=== PATIENT | female | born 1940 | race Caucasian/White ===

== ENCOUNTER 2018-09-27 12:55 | Inpatient (IN) | payer MEDICARE, BC ==
[2018-09-21 16:16] VITALS: BMI 19.8
[~2018-09-27 12:55] MED LIST: DEXAMETHASONE SOD PHOSPHATE 10 MG/ML 1 ML VIAL IV ONE; LACTATED RINGERS 1,000 ML IV SCH; MORPHINE SULFATE 4 MG/ML SYRINGE IV PRN; ONDANSETRON 4 MG/2 ML VIAL IVP ONE; ONDANSETRON 4 MG/2 ML VIAL IVP PRN; ceFAZolin IN SWFI 2 GM/20 ML SYRINGE IVP ONE
[2018-09-27] MEDS ORDERED: HYDROcodone/APAP 5-325MG 1 EACH TAB PO PRN (13:41)
[2018-09-27] MEDS ORDERED: SENNOSIDES-DOCUSATE SODIUM 1 EACH TAB PO PRN (13:41)
[2018-09-27] MEDS ORDERED: HYDROmorphone 0.5 MG/0.5 ML SYRINGE IVP PRN ×3 (13:41)
[2018-09-27] MEDS ORDERED: LACTATED RINGERS 1,000 ML IV ONE (13:52)
[2018-09-27] MEDS ORDERED: LIDOCAINE 1% 20 ML VIAL (10MG/ML) FOR IV START INTRADERMA ONE (13:53)
[2018-09-27] MEDS ORDERED: ONDANSETRON 4 MG/2 ML VIAL IVP ONE (13:55)
[2018-09-27] MEDS ORDERED: LIDOCAINE 1% INJ 10MG/ML (20 ML MDV) ONE (14:11)
[2018-09-27] MEDS ORDERED: SUCCINYLCHOLINE CHLORIDE 100 MG/5 ML SYR IV ONE (14:11)
[2018-09-27] MEDS ORDERED: ePHEDrine SULFATE/0.9% NACL/PF 50 MG/5 ML SYRINGE IV ONE (14:11)
[2018-09-27] MEDS ORDERED: fentaNYL (PF) 50 MCG/ML 2 ML AMP ONE (14:11)
[2018-09-27] MEDS ORDERED: PROPOFOL 10 MG/ML 20 ML VIAL IV ONE (14:11)
[2018-09-27] MEDS ORDERED: MIDAZOLAM 2 MG/2 ML VIAL ONE (14:11)
[2018-09-27] MEDS ORDERED: ceFAZolin 1,000 MG in SODIUM CHLORIDE 0.9% 1,000 ML IRRIGATION ONE (14:57)
--- NOTE | 2018-09-27 15:55 | P.OP ---
Date of Procedure: 09/27/18 Preoperative Diagnosis: Displaced fracture midshaft left humerus fracture Postoperative Diagnosis: Displaced fracture midshaft left humerus Procedure(s) Performed: Closed intramedullary rodding left humerus Implants: García and Nephew Trigen Humeral Nail 8/7mm x 26 cm García and Nephew 5.0 mm x 30 mm cancellous screw García and Nephew 5.0 mm x 40 mm cancellous screw Anesthesia: GETA Surgeon: Lucas Linda Financial Reporting Advisor #1: Aruna Hamilton Estimated Blood Loss (ml): 50 Pathology: none sent Condition: stable Disposition: PACU Indications for Procedure: This is a 77-year-old female that presented to my office after sustaining a fall onto her left side. X-rays demonstrated displaced fracture of her left midshaft humerus, after discussing the surgical and nonsurgical treatment options with her and her family at length, they wished to proceed with a closed intramedullary rodding of her left humerus. Informed consent was obtained Operative Findings: The operative findings are consistent with a displaced midshaft fracture of the left humerus Description of Procedure: The patient was seen in the preoperative area, consent was reviewed, and operative site was marked with a skin marker. Patient was then brought to the operating room and given preoperative antibiotics intravenously. A general anesthetic was administered by the anesthesia department. The patient was then placed in a beachchair position with the bony prominences well-padded and the head secured. The shoulder was then prepped and draped in the usual sterile fashion. A universal timeout was then performed, which confirmed the patient's name, surgical site, ALLERGIES, and consent. The procedure began by making a small incision on the superior aspect of the shoulder. Incision was then carried down to the insertion point of the machelle which is located just 1 cm distal and lateral to the greater tuberosity. An awl was then used to open up the humeral canal, and a guidewire was then passed proximally to distally across the fracture site while the fracture was held reduced. Fluoroscopic x-rays confirmed placement of the guidewire. The humeral canal was then reamed and opened proximally to the appropriate size. Also, the length of the humeral nail was then measured. Then, the appropriate size and length humeral machelle was opened and inserted into the humerus over the guidewire. The placement and length was checked fluoroscopically. The guidewire was then removed. Screws were then placed proximally to lock the machelle. No distal screws were necessary for stability. Final fluoroscopic x-rays were taken which confirmed placement of the machelle concentric reduction of the fracture. The incision was then irrigated, closed with 2-0 Vicryl and jessie for the skin. A sterile dressing was then applied, the patient was transported to the recovery room in an arm sling in stable condition. The machine operator assistant MEGGAN Quintana was required due the complexity of surgery and the need for a skilled entry level administrative assistant.
[2018-09-27] MEDS: HYDROmorphone 0.5 MG/0.5 ML SYRINGE IVP PRN ×4 (16:17→16:43)
[2018-09-27] MEDS ORDERED: diphenhydrAMINE 50 MG/ML 1 ML VIAL IVP ONE (16:48)
[2018-09-27] MEDS: HYDROcodone/APAP 5-325MG 1 EACH TAB PO PRN (19:14)
[2018-09-27] MEDS ORDERED: ALBUTEROL NEBULIZED 2.5 MG/3 ML INHALATION PRN (20:22)
[2018-09-27] MEDS ORDERED: LORATADINE 10 MG TAB PO PRN (20:22)
[2018-09-27] MEDS ORDERED: ALPRAZolam 0.25 MG TAB PO PRN (20:22)
[2018-09-27] MEDS: PRIMIDONE 50 MG TAB PO SCH (20:45)
[2018-09-27] MEDS ORDERED: ASPIRIN 325 MG TAB PO SCH (21:00)
[2018-09-27] MEDS: ceFAZolin IN SWFI 2 GM/20 ML SYRINGE IVP SCH (22:37)
[2018-09-28] MEDS ORDERED: HYDROcodone/APAP 5-325MG 1 EACH TAB ONE (01:00)
[2018-09-28] MEDS: ceFAZolin IN SWFI 2 GM/20 ML SYRINGE IVP SCH (06:18)
--- NOTE | 2018-09-28 07:15 | XR ---
EXAMINATION TYPE: XR humerus LT, FL guidance operating room DATE OF EXAM: 09/27/2018 CLINICAL HISTORY: Left humeral open reduction internal fixation TECHNIQUE: Fluoroscopy. COMPARISON: None. FINDINGS: Fluoroscopic guidance was provided during procedure performed by Dr. Linda. A total of 2 minutes and 22 seconds of fluoroscopic time was utilized during the procedure and 2 spot images wa s acquired demonstrating open reduction and internal fixation of the left humerus. IMPRESSION: As Above.
[2018-09-28 08:31] LABS: Basophils % (A) 0 %; Eosinophils # (A) 0.1 k/uL (0-0.7); Eosinophils % (A) 1 %; HCT 31.2 % (34.0-46.0); HGB 10.2 gm/dL (11.4-16.0); Lymphocytes # (A) 0.9 k/uL (1.0-4.8); Lymphocytes % (A) 11 %; MCH 29.8 pg (25.0-35.0); MCHC 32.6 g/dL (31.0-37.0); MCV 91.2 fL (80.0-100.0); Mean Platelet Volume 7.4; Monocytes # (A) 0.7 k/uL (0-1.0); Monocytes % (A) 9 %; Neutrophils # (A) 6.7 k/uL (1.3-7.7); Neutrophils % (A) 78 %; Platelet Count 215 k/uL (150-450); RBC 3.42 m/uL (3.80-5.40); RDW 14.6 % (11.5-15.5); WBC 8.6 k/uL (3.8-10.6)
--- NOTE | 2018-09-28 08:49 | P.PN ---
Subjective Progress Note Date: 09/28/18 This is a 77-year-old female who is status post closed intramedullary rodding of the left midshaft humerus. This is postoperative day #1 and the patient is seen and evaluated at bedside with Dr. Lucas Linda. Patient does report pain to the left upper extremity today. Patient denies any fever/chills, numbness, weakness, tingling, abdominal pain, shortness of breath or chest pain. Objective - Vital Signs Vital signs: Vital Signs Temp 98.1 F 09/28/18 08:11 Pulse 88 09/28/18 08:11 Resp 16 09/28/18 08:11 BP 150/76 09/28/18 08:11 Pulse Ox 97 09/28/18 08:11 Intake & Output 09/27/18 09/28/18 09/28/18 18:59 06:59 18:59 Intake Total 1151 1420 Output Total 50 Balance 1101 1420 Weight 50.802 kg Intake: IV 1151 Intake, IV Titration 840 Amount Lactated Ringers 1,000 ml 840 @ 0 mls/hr IV .[facility] Rx#:[id number] Oral 580 Output: Estimated Blood Loss 50 Other: # Voids 1 - Exam Vital signs are stable. Patient is in no acute distress and is alert and oriented 3. Dressing is clean, dry, and intact. Patient has full range of motion of the left hand and wrist without pain or difficulty. Sensation is intact. Neurovascular status and circulatory status are intact to the left upper extremity. - Labs CBC & Chem 7: 09/28/18 07:15 Labs: Abnormal Lab Results - Last 24 Hours (Table) 09/28/18 Range/Units 07:15 RBC 3.42 L (3.80-5.40) m/uL Hgb 10.2 L (11.4-16.0) gm/dL Hct 31.2 L (34.0-46.0) % Lymphocytes # 0.9 L (1.0-4.8) k/uL Assessment and Plan Assessment: Hypertension Asthma COPD Renal disease Hyperlipidemia Anxiety Thoracic aortic aneurysm Plan: 1. Daily dressing changes. Maintain sling for comfort. 2. Continue routine postoperative care and pain control. 3. Nonweightbearing to the left upper extremity. 4. Physical therapy for gentle range of motion to the left upper extremity. 5. Appreciate input from medicine. 6. Awaiting ECF placement.
[2018-09-28] MEDS: ALBUTEROL NEBULIZED 2.5 MG/3 ML INHALATION PRN (09:01)
[2018-09-28] MEDS: SYMBICORT 160-4.5 MCG INHALER INHALATION SCH ×2 (09:02→21:31)
[2018-09-28] MEDS: amLODIPine 5 MG TAB PO SCH (09:14)
[2018-09-28] MEDS: PANTOPRAZOLE 40 MG TABLET PO SCH (09:14)
[2018-09-28] MEDS: SERTRALINE 25 MG TAB PO SCH (09:14)
[2018-09-28] MEDS: DICYCLOMINE 10 MG CAP PO SCH ×2 (09:14→12:45)
[2018-09-28] MEDS: MULTIVITAMINS, THERA 1 EACH TAB PO SCH (09:14)
[2018-09-28] MEDS: HYDROcodone/APAP 5-325MG 1 EACH TAB PO PRN ×2 (09:14→18:27)
[2018-09-28] MEDS: LISINOPRIL 20 MG TAB PO SCH (09:14)
[2018-09-28] MEDS: CALCIUM CARB-VIT D 500MG-200UN 1 EACH TAB PO SCH (09:14)
[2018-09-28] MEDS ORDERED: POLYETHYLENE GLYCOL 3350 17 GM POWD.PACK PO PRN (12:12)
[2018-09-28] MEDS ORDERED: KETOROLAC 30 MG/ML 1 ML VIAL IVP PRN (12:13)
[2018-09-28 12:52] LABS: Calcium 9.1 mg/dL (8.4-10.2); Potassium 4.5 mmol/L (3.5-5.1)
[2018-09-28] MEDS ORDERED: traMADol 50 MG TAB PO PRN (13:10)
--- NOTE | 2018-09-28 13:11 | P.CONS ---
History of Present Illness - Reason for Consult recommendations regarding antihypertensive medications - History of Present Illness 77-year-old female admitted the for displaced fracture of the mid shaft left humerus for which she underwent intramedullary rodding of the left humerus. Patient is otherwise clinically doing well did not pass gas and did not move her bowel yet patient is on opiates. I'll start her on Toradol to avoid opiate and ALLERGIES see a loss obtain a basic metabolic profile as I'm starting her on nonsteroidal anti-inflammatory is patient will need GI prophylaxis. Patient is bit constipated because of the opiates patient is already on senna and docusate I'll add MiraLAX on as-needed basis. Patient denied any fever chills dysuria cough. Recommend to avoid opiates if possible along with avoiding anticholinergics, benzodiazepines and barbiturates Review of Systems REVIEW OF SYSTEMS: CONSTITUTIONAL: No fever, no malaise, no fatigue. HEENT: No recent visual problems or hearing problems. Denied any sore throat. CARDIOVASCULAR: No chest pain, orthopnea, PND, no palpitations, no syncope. PULMONARY: No shortness of breath, no cough, no hemoptysis. GASTROINTESTINAL: No diarrhea, no nausea, no vomiting, no abdominal pain. NEUROLOGICAL: No headaches, no weakness, no numbness. HEMATOLOGICAL: Denies any bleeding or petechiae. GENITOURINARY: Denies any burning micturition, frequency, or urgency. pain in the left arm MUSCULOSKELETAL/RHEUMATOLOGICAL: Denies any joint pain, swelling, or any muscle pain. ENDOCRINE: Denies any polyuria or polydipsia. The rest of the 14-point review of systems is negative. Past Medical History Past Medical History: Asthma, COPD, GERD/Reflux, Hearing Disorder / Deafness, Hypertension, Musculoskeletal Disorder, Neurologic Disorder, Osteoarthritis (OA) , Skin Disorder Additional Past Medical History / Comment(s): HIATAL HERNIA. IBS. "KIDNEY TURNED WRONG WAY," HX SL ABN RFP. LT HUMERUS FX, IN SPLINT/SLING; ? SYNCOPAL EPISODE W/ HX FALL 6 WKS AGO; FELT A SNAP IN ARM 09/16/18. SCOLIOSIS, OSTEOPOROSIS. PSORIASIS-LIKE COND, PATCHES ON ARMS. TREMORS LT HAND. VARICOSE VEINS. POS EDEMA ANKLES. HAD STEROID RX IN PAST MONTH FOR COUGH. History of Any Multi-Drug Resistant Organisms: None Reported Past Surgical History: Cholecystectomy, Heart Catheterization Past Anesthesia/Blood Transfusion Reactions: Postoperative Nausea & Vomiting ( PONV) Smoking Status: Never smoker - Past Family History Mother Family Medical History: Cancer Additional Family Medical History / Comment(s): THYROID CA Medications and Allergies Home Medications Medication Instructions Recorded Confirmed Type ALPRAZolam [Xanax] 0.25 mg PO BID PRN 09/21/18 09/27/18 History Acetaminophen [Tylenol Extra 500 - 1,000 mg PO Q4-6H PRN 09/21/18 09/27/18 History Strength] Albuterol Inhaler [Ventolin Hfa 2 puff INHALATION RT-Q6H PRN 09/21/18 09/27/18 History Inhaler] Albuterol Nebulized [Ventolin 2.5 mg INHALATION RT-BID PRN 09/21/18 09/27/18 History Nebulized] Calcium Carbonate/Vitamin D3 1 each PO DAILY 09/21/18 09/27/18 History [Calcium 600-Vit D3 400 Tablet] Dicyclomine HCl 10 mg PO AC-TID 09/21/18 09/27/18 History Fluocinonide [Lidex .05%] 1 applic TOPICAL BID PRN 09/21/18 09/27/18 History Fluocinonide [Lidex .05%] 1 applic TOPICAL Q48H PRN 09/21/18 09/27/18 History Fluticasone/Vilanterol [Breo 1 inhalation INHALATION RT-DAILY 09/21/18 09/27/18 History Ellipta 200-25 Mcg INH] HYDROcodone/APAP 5-325MG [[place] 1 tab PO BID 09/21/18 09/27/18 History 5-325] Lisinopril [Zestril] 20 mg PO DAILY 09/21/18 09/27/18 History Loratadine [Claritin] 10 mg PO DAILY PRN 09/21/18 09/27/18 History Multivitamins, Thera [Multivitamin 1 tab PO DAILY 09/21/18 09/27/18 History (formulary)] Naproxen Sodium [Aleve] 220 mg PO BID PRN 09/21/18 09/27/18 History Omeprazole [PriLOSEC] 20 mg PO AC-BRKFST 09/21/18 09/27/18 History Primidone [Mysoline] 50 mg PO HS 09/21/18 09/27/18 History Sertraline [Zoloft] 25 mg PO DAILY 09/21/18 09/27/18 History Simethicone [Gas-X] 125 mg PO DAILY PRN 09/21/18 09/27/18 History amLODIPine [Norvasc] 5 mg PO DAILY 09/21/18 09/27/18 History Allergies Allergy/AdvReac Type Severity Reaction Status Date / Time ciprofloxacin [From Cipro] Allergy Unknown Verified 09/27/18 19:05 morphine Allergy Unknown Verified 09/27/18 19:05 nabumetone Allergy Unknown Verified 09/27/18 19:05 sulfadiazine Allergy Unknown Verified 09/27/18 19:05 sulfamethizole Allergy Unknown Verified 09/27/18 19:05 adhesive tape AdvReac TEARS Verified 09/27/18 19:05 SKIN, VERY THIN SKIN Physical Exam Vitals: Vital Signs Temp Pulse Pulse Resp BP Pulse Ox 09/28/18 09:18 74 09/28/18 09:03 76 09/28/18 08:11 98.1 F 88 16 150/76 97 09/27/18 19:25 97.3 F L 74 16 156/71 91 L 09/27/18 19:15 78 154/73 95 09/27/18 19:00 72 156/71 92 L 09/27/18 18:50 98.4 F 74 14 154/76 95 09/27/18 18:45 70 162/70 94 L 09/27/18 18:30 73 154/72 89 L 09/27/18 18:15 77 153/73 92 L 09/27/18 18:00 74 156/68 94 L 09/27/18 17:45 78 161/82 94 L 09/27/18 17:30 82 149/120 92 L 09/27/18 17:15 74 140/65 93 L 09/27/18 17:02 80 14 134/69 95 09/27/18 17:00 72 143/65 91 L 09/27/18 16:48 83 16 169/79 100 09/27/18 16:45 84 152/76 97 09/27/18 16:33 72 16 158/73 100 09/27/18 16:17 77 16 166/79 99 09/27/18 16:05 97.0 F L 77 18 132/74 99 09/27/18 13:51 98.0 F 80 18 157/72 97 Intake and Output 09/27/18 09/28/18 09/28/18 22:59 06:59 14:59 Intake Total 590 1180 Balance 590 1180 Intake: IV 350 Intake, IV Titration 140 700 Amount Lactated Ringers 1,000 ml 140 700 @ 0 mls/hr IV .[facility] Rx#:[id number] Oral 100 480 Other: Voiding Method Toilet # Voids 1 1 Weight 50.802 kg PHYSICAL EXAMINATION: GENERAL: The patient is alert and oriented x3, not in any acute distress. thin built HEENT: Pupils are round and equally reacting to light. EOMI. No scleral icterus. No conjunctival pallor. Normocephalic, atraumatic. No pharyngeal erythema. No thyromegaly. CARDIOVASCULAR: S1 and S2 present. No murmurs, rubs, or gallops. PULMONARY: Chest is clear to auscultation, no wheezing or crackles. ABDOMEN: Soft, nontender, nondistended, normoactive bowel sounds. No palpable organomegaly. left arm sling in place MUSCULOSKELETAL: No joint swelling or deformity. EXTREMITIES: No cyanosis, clubbing, or pedal edema. NEUROLOGICAL: Gross neurological examination did not reveal any focal deficits. SKIN: No rashes. Results CBC & Chem 7: 09/28/18 07:15 09/28/18 07:15 Labs: Abnormal Lab Results - Last 24 Hours (Table) 09/28/18 09/28/18 Range/Units 07:15 07:15 RBC 3.42 L (3.80-5.40) m/uL Hgb 10.2 L (11.4-16.0) gm/dL Hct 31.2 L (34.0-46.0) % Lymphocytes # 0.9 L (1.0-4.8) k/uL Sodium 134 L (137-145) mmol/L BUN 18 H (7-17) mg/dL Creatinine 1.14 H (0.52-1.04) mg/dL Assessment and Plan Plan: hyponatremia: Hypervolemic hyponatremia patient is on IV fluids which can be continued repeat basic metabolic profile tomorrow patient only has mild hyponatremia -Mild acute renal failure because of intravascular depletion initially started her on Toradol which I'll discontinue all started on tramadol to avoid opiate and ALLERGIES see which is making her conservator -Constipation secondary to opiates: Management with MiraLAX as needed and senna as mentioned above. Bentyl will be discontinued -Left humerus fracture post-intramedullary rodding -depression continue with sertraline -Hypertension patient is not hypotensive patient was resumed on her home regimen which can be continued. FN DVT prophylaxis as per primary service
[2018-09-28] MEDS: HEPARIN SODIUM,PORCINE 5,000 UNIT/ML 1 ML VIAL SQ SCH (22:20)
[2018-09-28] MEDS: PRIMIDONE 50 MG TAB PO SCH (22:20)
[2018-09-29] MEDS: HYDROcodone/APAP 5-325MG 1 EACH TAB PO PRN (02:33)
[2018-09-29] MEDS: CALCIUM CARB-VIT D 500MG-200UN 1 EACH TAB PO SCH (08:17)
[2018-09-29] MEDS: MULTIVITAMINS, THERA 1 EACH TAB PO SCH (08:17)
[2018-09-29] MEDS: HEPARIN SODIUM,PORCINE 5,000 UNIT/ML 1 ML VIAL SQ SCH ×2 (08:17→21:09)
[2018-09-29] MEDS: SERTRALINE 25 MG TAB PO SCH (08:17)
[2018-09-29] MEDS: PANTOPRAZOLE 40 MG TABLET PO SCH (08:17)
[2018-09-29] MEDS: amLODIPine 5 MG TAB PO SCH (08:17)
[2018-09-29] MEDS: LISINOPRIL 20 MG TAB PO SCH (08:17)
--- NOTE | 2018-09-29 08:41 | P.PN ---
Subjective Progress Note Date: 09/29/18 This is a 77-year-old female who is status post closed intramedullary rodding of the left midshaft humerus. This is postoperative day #2 and the patient is seen and evaluated at bedside. Patient does report pain to the left upper extremity today. Patient has not had a bowel movement yet, per nursing staff. Patient denies any fever/chills, numbness, weakness, tingling, abdominal pain, shortness of breath or chest pain. Objective - Vital Signs Vital signs: Vital Signs Temp 98.2 F 09/29/18 00:08 Pulse 74 09/29/18 00:08 Resp 16 09/29/18 00:57 BP 144/67 09/29/18 00:08 Pulse Ox 96 09/29/18 00:08 Intake & Output 09/28/18 09/29/18 09/29/18 18:59 06:59 18:59 Intake Total 500 540 Balance 500 540 Intake: Oral 500 540 Other: Voiding Method Toilet # Voids 2 1 - Exam Vital signs are stable. Patient is in no acute distress and is alert and oriented 3. Surgical clips are intact. Incision is clean, dry, and intact. Patient has full range of motion of the left hand and wrist without pain or difficulty. There is moderate swelling of the left upper arm. Sensation is intact. Neurovascular status and circulatory status are intact to the left upper extremity. - Labs CBC & Chem 7: 09/28/18 07:15 09/28/18 07:15 Labs: Abnormal Lab Results - Last 24 Hours (Table) 09/28/18 09/28/18 Range/Units 07:15 07:15 RBC 3.42 L (3.80-5.40) m/uL Hgb 10.2 L (11.4-16.0) gm/dL Hct 31.2 L (34.0-46.0) % Lymphocytes # 0.9 L (1.0-4.8) k/uL Sodium 134 L (137-145) mmol/L BUN 18 H (7-17) mg/dL Creatinine 1.14 H (0.52-1.04) mg/dL Assessment and Plan Assessment: Hypertension Asthma COPD Renal disease Hyperlipidemia Anxiety Thoracic aortic aneurysm Plan: 1. Daily dressing changes. Maintain sling for comfort. 2. Continue routine postoperative care and pain control. 3. Nonweightbearing to the left upper extremity. 4. Physical therapy for gentle range of motion to the left upper extremity. 5. Appreciate input from medicine. 6. Awaiting ECF placement.
[2018-09-29] MEDS: SYMBICORT 160-4.5 MCG INHALER INHALATION SCH ×2 (09:13→21:36)
[2018-09-29] MEDS: ALBUTEROL NEBULIZED 2.5 MG/3 ML INHALATION PRN (09:13)
--- NOTE | 2018-09-29 13:25 | P.PN ---
Subjective No overnight events Constitutional: Denied any fatigue denied any fever. Cardio vascular: denied any chest pain, palpitations Gastrointestinal denied any nausea vomiting Pulmonary: Denied any shortness of breath cough Neurologic denied any new focal deficits All inpatient medications were reviewed and appropriate changes in these medications as dictated in the interval history and assessment and plan. Discontinuing amlodipine, from her serial blood pressure measurement and do not believe she'll require this. Objective - Vital Signs Vital signs: Vital Signs Temp 98.6 F 09/29/18 08:11 Pulse 84 09/29/18 09:15 Resp 18 09/29/18 08:11 BP 153/80 09/29/18 08:11 Pulse Ox 98 09/29/18 08:11 Intake & Output 09/28/18 09/29/18 09/29/18 18:59 06:59 18:59 Intake Total 500 540 Balance 500 540 Intake: Oral 500 540 Other: Voiding Method Toilet # Voids 2 1 - Exam PHYSICAL EXAMINATION: GENERAL: The patient is alert and oriented x3, not in any acute distress. thin built HEENT: Pupils are round and equally reacting to light. EOMI. No scleral icterus. No conjunctival pallor. Normocephalic, atraumatic. No pharyngeal erythema. No thyromegaly. CARDIOVASCULAR: S1 and S2 present. No murmurs, rubs, or gallops. PULMONARY: Chest is clear to auscultation, no wheezing or crackles. ABDOMEN: Soft, nontender, nondistended, normoactive bowel sounds. No palpable organomegaly. left arm sling in place MUSCULOSKELETAL: No joint swelling or deformity. EXTREMITIES: No cyanosis, clubbing, or pedal edema. NEUROLOGICAL: Gross neurological examination did not reveal any focal deficits. SKIN: No rashes. - Labs CBC & Chem 7: 09/28/18 07:15 09/28/18 07:15 Assessment and Plan Plan: hyponatremia: Hypervolemic hyponatremia patient is on IV fluids which can be continued repeat basic metabolic profile tomorrow patient only has mild hyponatremia -Mild acute renal failure because of intravascular depletion initially started her on Toradol which I'll discontinue all started on tramadol to avoid opiate Meme anticholinergic medications, benzodiazepines and barbiturates patient is still bit constipated -Constipation secondary to opiates: Management with MiraLAX as needed and senna as mentioned above. Bentyl was discontinued -Left humerus fracture post-intramedullary rodding -depression continue with sertraline -Hypertension patient is not hypotensive patient was resumed on her home regimen which can be continued. FN DVT prophylaxis as per primary service
[2018-09-29] MEDS: LACTULOSE 20 GM/30 ML CUP PO SCH ×2 (15:16→21:06)
[2018-09-29] MEDS ORDERED: SENNOSIDES-DOCUSATE SODIUM 1 EACH TAB PO SCH (21:00)
[2018-09-29] MEDS: DOCUSATE 100 MG CAP PO SCH (21:06)
[2018-09-29] MEDS: PRIMIDONE 50 MG TAB PO SCH (21:09)
--- NOTE | 2018-09-30 08:39 | P.DS ---
Providers Date of admission: 09/27/18 12:55 Expected date of discharge: 09/30/18 Attending physician: Lucas Linda Consults: 09/28/18 08:18 Consult Physician Routine Consulting Provider: Dany Modi Consult Reason/Comments: medical management Do you want consulting provider notified?: Yes Primary care physician: Vic García MD Hospital Course: This is a 77-year-old female who sustained a fracture of the left midshaft humerus after a fall. The patient presented for initial evaluation as an outpatient. After discussion and consideration patient elects to proceed with closed intramedullary rodding of the left humerus. The patient is seen preoperatively by Dr. Linda and medically cleared for surgery by their primary care physician. Patient is admitted to [facility] on 09/27/2018 for closed intramedullary rodding of the left humerus. The procedures performed without complication or sequelae. The patient is doing well postoperatively. Labs and vital signs are stable on day of discharge. On day of discharge patient's shoulder incision is healing well. There is minimal erythema. There is no drainage noted at this time. There is minimal soft tissue swelling to the shoulder. Patient has full range of motion of the left wrist and hand without difficulty or pain. Sensation is intact. Neurovascular status to the left upper extremity is intact. Patient is discharged to rehab in good condition. Please see med rec for accurate list of home medications. Plan - Discharge Summary Discharge Rx Participant: Yes New Discharge Prescriptions: No Action HYDROcodone/APAP 5-325MG [[place] 5-325] 1 tab PO BID Naproxen Sodium [Aleve] 220 mg PO BID PRN PRN Reason: Pain Acetaminophen [Tylenol Extra Strength] 500 - 1,000 mg PO Q4-6H PRN PRN Reason: Pain Simethicone [Gas-X] 125 mg PO DAILY PRN PRN Reason: IBS SX Loratadine [Claritin] 10 mg PO DAILY PRN PRN Reason: ALLERGY SX Dicyclomine HCl 10 mg PO AC-TID Omeprazole [PriLOSEC] 20 mg PO AC-BRKFST Multivitamins, Thera [Multivitamin (formulary)] 1 tab PO DAILY Fluocinonide [Lidex .05%] 1 applic TOPICAL Q48H PRN PRN Reason: SCALP FOR PSORIASIS Calcium Carbonate/Vitamin D3 [Calcium 600-Vit D3 400 Tablet] 1 each PO DAILY Fluocinonide [Lidex .05%] 1 applic TOPICAL BID PRN PRN Reason: "PSORIASIS LIKE CONDITION" Fluticasone/Vilanterol [Breo Ellipta 200-25 Mcg INH] 1 inhalation INHALATION RT-DAILY Albuterol Nebulized [Ventolin Nebulized] 2.5 mg INHALATION RT-BID PRN PRN Reason: COPD SX Albuterol Inhaler [Ventolin Hfa Inhaler] 2 puff INHALATION RT-Q6H PRN PRN Reason: COPD SX ALPRAZolam [Xanax] 0.25 mg PO BID PRN PRN Reason: Anxiety amLODIPine [Norvasc] 5 mg PO DAILY Primidone [Mysoline] 50 mg PO HS Sertraline [Zoloft] 25 mg PO DAILY Lisinopril [Zestril] 20 mg PO DAILY Discharge Medication List ALPRAZolam [Xanax] 0.25 mg PO BID PRN 09/21/18 [History] Acetaminophen [Tylenol Extra Strength] 500 - 1,000 mg PO Q4-6H PRN 09/21/18 [ History] Albuterol Inhaler [Ventolin Hfa Inhaler] 2 puff INHALATION RT-Q6H PRN 09/21/18 [ History] Albuterol Nebulized [Ventolin Nebulized] 2.5 mg INHALATION RT-BID PRN 09/21/18 [ History] Calcium Carbonate/Vitamin D3 [Calcium 600-Vit D3 400 Tablet] 1 each PO DAILY 11/08 [History] Dicyclomine HCl 10 mg PO AC-TID 09/21/18 [History] Fluocinonide [Lidex .05%] 1 applic TOPICAL BID PRN 09/21/18 [History] Fluocinonide [Lidex .05%] 1 applic TOPICAL Q48H PRN 09/21/18 [History] Fluticasone/Vilanterol [Breo Ellipta 200-25 Mcg INH] 1 inhalation INHALATION RT- DAILY 09/21/18 [History] HYDROcodone/APAP 5-325MG [[place] 5-325] 1 tab PO BID 09/21/18 [History] Lisinopril [Zestril] 20 mg PO DAILY 09/21/18 [History] Loratadine [Claritin] 10 mg PO DAILY PRN 09/21/18 [History] Multivitamins, Thera [Multivitamin (formulary)] 1 tab PO DAILY 09/21/18 [History ] Naproxen Sodium [Aleve] 220 mg PO BID PRN 09/21/18 [History] Omeprazole [PriLOSEC] 20 mg PO AC-BRKFST 09/21/18 [History] Primidone [Mysoline] 50 mg PO HS 09/21/18 [History] Sertraline [Zoloft] 25 mg PO DAILY 09/21/18 [History] Simethicone [Gas-X] 125 mg PO DAILY PRN 09/21/18 [History] amLODIPine [Norvasc] 5 mg PO DAILY 09/21/18 [History] Follow up Appointment(s)/Referral(s): Nasra Rausch, [NON-STAFF] - As Needed
[2018-09-30 08:49] LABS: Calcium 9.3 mg/dL (8.4-10.2); Potassium 4.5 mmol/L (3.5-5.1)
[2018-09-30] MEDS: SYMBICORT 160-4.5 MCG INHALER INHALATION SCH (09:11)
[2018-09-30] MEDS: HEPARIN SODIUM,PORCINE 5,000 UNIT/ML 1 ML VIAL SQ SCH (09:51)
[2018-09-30] MEDS: DOCUSATE 100 MG CAP PO SCH (09:51)
[2018-09-30] MEDS: PANTOPRAZOLE 40 MG TABLET PO SCH (09:53)
[2018-09-30] MEDS: CALCIUM CARB-VIT D 500MG-200UN 1 EACH TAB PO SCH (09:53)
[2018-09-30] MEDS: LISINOPRIL 20 MG TAB PO SCH (09:53)
[2018-09-30] MEDS: SERTRALINE 25 MG TAB PO SCH (09:53)
[2018-09-30] MEDS: MULTIVITAMINS, THERA 1 EACH TAB PO SCH (09:53)
[2018-09-30] MEDS: LACTULOSE 20 GM/30 ML CUP PO SCH (09:53)
[2018-09-30 09:55] VITALS: BP 112/69; PULSE 86; RESP 16; TEMP 97.8
--- NOTE | 2018-09-30 12:11 | P.PN ---
Subjective Patient is clinically doing well amlodipine will be discussed uterine patient blood pressure is within normal limits. Patient is being discharged to subacute rehabilitation medication reconciliation is taken care of. Constitutional: Denied any fatigue denied any fever. Cardio vascular: denied any chest pain, palpitations Gastrointestinal denied any nausea vomiting Pulmonary: Denied any shortness of breath cough Neurologic denied any new focal deficits All inpatient medications were reviewed and appropriate changes in these medications as dictated in the interval history and assessment and plan. Discontinuing amlodipine, from her serial blood pressure measurement and do not believe she'll require this. Objective - Vital Signs Vital signs: Vital Signs Temp 97.8 F 09/30/18 09:55 Pulse 86 09/30/18 09:55 Resp 16 09/30/18 09:55 BP 112/69 09/30/18 09:55 Pulse Ox 98 09/30/18 09:55 Intake & Output 09/29/18 09/30/18 09/30/18 18:59 06:59 18:59 Intake Total 1620 Balance 1620 Intake: Oral 1620 Other: Voiding Method Toilet # Voids 2 2 # Bowel Movements 3 - Exam PHYSICAL EXAMINATION: GENERAL: The patient is alert and oriented x3, not in any acute distress. thin built HEENT: Pupils are round and equally reacting to light. EOMI. No scleral icterus. No conjunctival pallor. Normocephalic, atraumatic. No pharyngeal erythema. No thyromegaly. CARDIOVASCULAR: S1 and S2 present. No murmurs, rubs, or gallops. PULMONARY: Chest is clear to auscultation, no wheezing or crackles. ABDOMEN: Soft, nontender, nondistended, normoactive bowel sounds. No palpable organomegaly. left arm sling in place MUSCULOSKELETAL: No joint swelling or deformity. EXTREMITIES: No cyanosis, clubbing, or pedal edema. NEUROLOGICAL: Gross neurological examination did not reveal any focal deficits. SKIN: No rashes. - Labs CBC & Chem 7: 09/28/18 07:15 09/30/18 07:38 Labs: Abnormal Lab Results - Last 24 Hours (Table) 09/30/18 Range/Units 07:38 Sodium 135 L (137-145) mmol/L Creatinine 1.07 H (0.52-1.04) mg/dL Assessment and Plan Plan: hyponatremia: Hypervolemic hyponatremia improved with IV fluids patient can be discharged from medical perspective I did review medication reconciliation and appropriate changes were made to her discharge medications -Mild acute renal failure because of intravascular depletion improved with IV fluids -Constipation secondary to opiates: Symptomatic management and secondary to opiates which are probably need to be avoided as much as we can -Left humerus fracture post-intramedullary rodding -depression continue with sertraline -Hypertension
[2018-09-30] MEDS: HYDROcodone/APAP 5-325MG 1 EACH TAB PO PRN (14:43)
== END 2018-09-30 14:59 | DRG 493 ==
LOC: 2ORMAIN 12:55 → 4SSUR 16:15
PROVIDERS: ADMIT Orthopaedic Surgery; ATTEND Orthopaedic Surgery
PROC: 0PSG06Z Reposition Left Humeral Shaft with Intramedullary Internal Fixation Device, Open Approach (ICD-10-PCS; principal; 2018-09-27 15:05)
DX: S42.322A Displaced transverse fracture of shaft of humerus, left arm, initial encounter for closed fracture (principal); E87.1 Hypo-osmolality and hyponatremia; N17.9 Acute kidney failure, unspecified; W19.XXXA Unspecified fall, initial encounter; I10 Essential (primary) hypertension; M81.0 Age-related osteoporosis without current pathological fracture; I71.2 Thoracic aortic aneurysm, without rupture; F41.9 Anxiety disorder, unspecified; F32.9 Major depressive disorder, single episode, unspecified; J44.9 Chronic obstructive pulmonary disease, unspecified; K59.00 Constipation, unspecified; T40.605A Adverse effect of unspecified narcotics, initial encounter; E78.5 Hyperlipidemia, unspecified; H91.90 Unspecified hearing loss, unspecified ear; R25.1 Tremor, unspecified; I83.90 Asymptomatic varicose veins of unspecified lower extremity; K21.9 Gastro-esophageal reflux disease without esophagitis; K44.9 Diaphragmatic hernia without obstruction or gangrene; K58.9 Irritable bowel syndrome, unspecified; M41.9 Scoliosis, unspecified; N28.9 Disorder of kidney and ureter, unspecified; Z79.899 Other long term (current) drug therapy; Z79.51 Long term (current) use of inhaled steroids; Z80.8 Family history of malignant neoplasm of other organs or systems; Z90.49 Acquired absence of other specified parts of digestive tract; Z88.1 Allergy status to other antibiotic agents; Z88.2 Allergy status to sulfonamides; Z88.8 Allergy status to other drugs, medicaments and biological substances; Z87.891 Personal history of nicotine dependence
CPT/HCPCS: 80048; 85025; 94640

== ENCOUNTER → 2021-09-30 | Outpatient (CLI) | payer MEDICARE, BC ==
[2021-09-30 14:56] LABS: HCT 39.5 % (34.0-46.0); HGB 12.7 gm/dL (11.4-16.0); MCH 31.3 pg (25.0-35.0); MCHC 32.2 g/dL (31.0-37.0); MCV 97.1 fL (80.0-100.0); Mean Platelet Volume 8.4; Platelet Count 236 k/uL (150-450); RBC 4.06 m/uL (3.80-5.40); RDW 14.9 % (11.5-15.5); WBC 6.8 k/uL (3.8-10.6)
[2021-09-30 15:00] LABS: Appearance,Urine Cloudy (Clear); Bacteria,Urine Occasional /hpf; Bilirubin,Urine Negative (Negative); Blood,Urine Negative (Negative); Color,Urine Light Yellow; Glucose,Urine (UA) Negative (Negative); Hyaline Casts,Urine 7 /lpf (0-2); Ketones,Urine Negative (Negative); Leukocyte Esterase,Urine Small (Negative); Mucus,Urine Rare /hpf; Nitrite,Urine Negative (Negative); Protein,Urine Negative (Negative); RBC,Urine 1 /hpf (0-5); Specific Gravity,Urine 1.009 (1.001-1.035); Urobilinogen,Urine <2.0 mg/dL (<2.0); WBC,Urine 9 /hpf (0-5)
[2021-09-30 15:06] LABS: Calcium 9.5 mg/dL (8.4-10.2)
[2021-09-30 15:12] LABS: Partial Thromboplastin Time 26.7 sec (22.0-30.0); Prothrombin Time 10.7 sec (9.0-12.0)
--- NOTE | 2021-09-30 16:11 | XR ---
EXAMINATION TYPE: XR chest 2V DATE OF EXAM: 09/30/2021 COMPARISON: None HISTORY: 80 year-old female Z01.818 TECHNIQUE: Frontal and lateral views FINDINGS: Heart upper limits of normal in size. Aorta and pulmonary vasculature are within normal limits. Hyper inflation. Biapical pleural-parenchymal scarring. Bilateral nipple shadows. No consolidation or pleur al effusion. Focal infrahilar opacity on the lateral view could represent vascular confluence. Given increased risk for development of lung cancer, further contrast enhanced CT evaluation recommended. IMPRESSION: COPD with biapical pleuroparenchymal scarring. Focal infrahilar opacity on the lateral view could rep resent vascular confluence. Given patient's increased risk for development of lung cancer, further co ntrast enhanced CT evaluation is recommended to exclude a pulmonary nodule.
== END | disposition home or self-care (01) ==
LOC: LABWHC1 13:33
PROVIDERS: ATTEND Orthopaedic Surgery Orthopaedic Surgery of the Spine
DX: Z01.812 Encounter for preprocedural laboratory examination (principal)
CPT/HCPCS: 36415; 71046; 80048; 81001; 85027; 85610; 85730; 93005

== ENCOUNTER → 2023-04-21 | Outpatient (CLI) | payer MEDICARE, BC ==
--- NOTE | 2023-04-22 10:37 | NM ---
EXAMINATION TYPE: NM DatScan Brain SPECT DATE OF EXAM: 04/21/2023 COMPARISON: NONE CLINICAL INDICATION: Female, 82 years old with history of G25.0 ESSENTIAL TREMOR; TECHNIQUE: 10 drops of Lugol's solution was administered 1 hour prior to injection as a thyroid bloc bernie agent. After the administration of 4.7 mCi I-123 Ioflupane DaTscan. Images obtained [address] injection. SPECT images of the brain were acquired with axial and coronal reconstructions. FINDINGS: Symmetric and normal-appearing bilateral striatal uptake and normal background activity. IMPRESSION: There is normal appearance of the gastric diagnosis of idiopathic Parkinson's disease or a parkinsoni an syndrome. It is seen in healthy individuals and also patients with essential tremor, drug-induced parkinsonism, and vascular psuedo-parkinsonism.
== END | disposition home or self-care (01) ==
LOC: RADNMMAIN 10:30
PROVIDERS: ATTEND Psychiatry & Neurology Neurology
DX: G25.0 Essential tremor (principal); G21.4 Vascular parkinsonism; G21.19 Other drug induced secondary parkinsonism
CPT/HCPCS: 78803; A9584

== ENCOUNTER 2025-03-20 15:34 | Emergency (ER) | payer MEDICARE, BC ==
[2025-03-20 15:43] VITALS: BP 195/99; PULSE 76; RESP 18; TEMP 97.4
--- NOTE | 2025-03-20 15:43 | ED ---
General Adult HPI - General Source: patient, EMS, RN notes reviewed Mode of arrival: EMS Limitations: no limitations <Lucas Purvis - Last Filed: 03/20/25 15:42> <Ines Perales - Last Filed: 03/20/25 18:48> - General Stated complaint: Fall-Back pain Time Seen by Provider: 03/20/25 15:35 - History of Present Illness Initial comments: Quick note 84-year-old female presents emerged part via EMS chief complaint of a fall. Patient lost her balance falling back in the tub. Patient complains of low back pain, pelvic pain. No head injury no loss conscious no blood thinners. (Lucas Purvis) 84-year-old female presenting to emergency department via EMS after a fall. Patient states that she was in her bathroom when she lost her balance falling backwards and hitting her back on the bathroom tile. She is endorsing pain to the lower back and of her pelvis however denies radiation down bilateral lower extremities. She denies loss of bladder or bowel control or saddle anesthesias. She denies hitting her head or loss of conscious at the time of the injury. Denies blood thinner use. Patient states that she ambulates at home with a walker. (Ines Perales) - Related Data Home Medications Medication Instructions Recorded Confirmed Fluticasone/Vilanterol [Breo 1 inhalation INHALATION RT-DAILY 09/21/18 09/26/21 Ellipta 200-25 Mcg Inhaler] Loratadine [Claritin] 10 mg PO DAILY PRN 09/21/18 10/06/21 Omeprazole [PriLOSEC] 20 mg PO AC-BRKFST 09/21/18 10/06/21 Primidone [Mysoline] 50 mg PO HS 09/21/18 10/06/21 Simethicone [Gas-X] 125 mg PO DAILY PRN 09/21/18 09/26/21 ALPRAZolam [Xanax] 0.25 mg PO TID PRN 09/26/21 09/26/21 Albuterol Sulfate [Ventolin HFA] 1 - 2 puff INHALATION Q6H PRN 09/26/21 09/26/21 Amiodarone HCl [Pacerone] 100 mg PO DAILY 09/26/21 09/26/21 Ascorbic Acid [Vitamin C] 500 mg PO DAILY 09/26/21 09/26/21 Calcium Carbonate [Calcium] 600 mg PO DAILY 09/26/21 09/26/21 HYDROcodone/APAP 5-325MG [[place] 1 tab PO BID PRN 09/26/21 10/06/21 5-325] Levothyroxine Sodium 88 mcg PO DAILY 09/26/21 10/06/21 Metoprolol Succinate (ER) [Toprol 50 mg PO BID 09/26/21 09/26/21 Xl] Multivit with Calcium,Iron,Min 1 each PO DAILY 09/26/21 09/26/21 [Women's Multivitamin] Sacubitril/Valsartan [Entresto 49 1 each PO BID 09/26/21 09/26/21 mg-51 mg Tablet] Triamcinolone Acetonide 1 % 1 applicate TOPICAL DAILY 09/26/21 methocarbamoL [Robaxin-750] 750 mg PO TID PRN 09/26/21 10/06/21 Nitrofurantoin Monohyd/M-Cryst 100 mg PO Q12HR 10/01/21 10/01/21 [Macrobid] Nitrofurantoin Monohyd/M-Cryst 100 mg PO Q12HR 10/06/21 10/06/21 [Macrobid] Allergies Allergy/AdvReac Type Severity Reaction Status Date / Time ciprofloxacin [From Cipro] Allergy Unknown Verified 03/20/25 15:43 morphine Allergy Unknown Verified 03/20/25 15:43 nabumetone Allergy Unknown Verified 03/20/25 15:43 sulfadiazine Allergy Unknown Verified 03/20/25 15:43 sulfamethizole Allergy Unknown Verified 03/20/25 15:43 adhesive tape AdvReac TEARS Verified 03/20/25 15:43 SKIN, VERY THIN SKIN ANTIBACTERIAL SOAP AdvReac Unknown IRRITATES Uncoded 03/20/25 15:43 SKIN, UNABLE TO USE Review of Systems ROS Other: All systems not noted in ROS Statement are negative. <Lucas Purvis - Last Filed: 03/20/25 15:42> ROS Other: All systems not noted in ROS Statement are negative. <Ines Perales - Last Filed: 03/20/25 18:48> ROS Statement: Those systems with pertinent positive or pertinent negative responses have been documented in the HPI. 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 IBS. "KIDNEY TURNED WRONG WAY," HX SL ABN RFP. LT HUMERUS FX, IN SPLINT/SLING; ? SYNCOPAL EPISODE W/ HX FALL 6 WKS AGO; FELT A SNAP IN ARM 09/16/18. SCOLIOSIS, OSTEOPOROSIS. PSORIASIS-LIKE COND, PATCHES ON ARMS. TREMORS LT HAND. VARICOSE VEINS. POS EDEMA ANKLES. HAD STEROID RX IN PAST MONTH FOR COUGH. History of Any Multi-Drug Resistant Organisms: None Reported Past Surgical History: Cholecystectomy, Heart Catheterization Additional Past Surgical History / Comment(s): LEFT ARM FX WITH MARISELA, CATARACTS WITH LENS IMPLANTS Past Anesthesia/Blood Transfusion Reactions: Postoperative Nausea & Vomiting (PONV) Past Psychological History: Anxiety, Depression Additional Psychological History / Comment(s): LIVES ALONE. Smoking Status: Former smoker Past Alcohol Use History: None Reported Additional Past Alcohol Use History / Comment(s): SMOKED SOCIALLY, QUIT IN HER 20'S. Past Drug Use History: None Reported - Past Family History Mother Family Medical History: Cancer Additional Family Medical History / Comment(s): THYROID CA <Lucas Purvis - Last Filed: 03/20/25 15:42> General Exam <Lucas Purvis - Last Filed: 03/20/25 15:42> General appearance: alert, in no apparent distress Neck exam: Present: normal inspection. Absent: tenderness, meningismus, lymphadenopathy Respiratory exam: Present: normal lung sounds bilaterally. Absent: respiratory distress, wheezes, rales, rhonchi, stridor Cardiovascular Exam: Present: regular rate, normal rhythm, normal heart sounds. Absent: systolic murmur, diastolic murmur, rubs, gallop, clicks GI/Abdominal exam: Present: soft, normal bowel sounds. Absent: distended, tenderness, guarding, rebound, rigid Extremities exam: Present: normal inspection, full ROM, normal capillary refill. Absent: tenderness, pedal edema, joint swelling, calf tenderness Back exam: Present: full ROM, tenderness. Absent: CVA tenderness (R), CVA tenderness (L) <Ines Perales - Last Filed: 03/20/25 18:48> - General Exam Comments Initial Comments: Visual Physical Exam Vital signs reviewed General: Well-appearing, nontoxic, no acute distress. Head: Normocephalic, atraumatic Eyes: PERRLA, EOMI ENT: Airway patent Chest: Nonlabored breathing Skin: No visual rash, normal skin tone Neuro: Alert and oriented 3 Musculoskeletal: No gross abnormalities (Lucas Purvis) Course Vital Signs 03/20/25 15:40 Temperature 97.4 F L Pulse Rate 76 Respiratory 18 Rate Blood Pressure 195/99 O2 Sat by Pulse 94 L Oximetry Medical Decision Making <Lucas Purvis - Last Filed: 03/20/25 15:42> <Ines Perales - Last Filed: 03/20/25 18:48> - Medical Decision Making I completed the quick note portion of this chart signed Lucas Purvis PA-C (Lucas Purvis) Was pt. sent in by a medical professional or institution ([facility]GG[facility], WILDLIFE BIOSTATION RESEARCH ECOLOGIST, urgent care, hospital, or care home...) When possible be specific @ -No Did you speak to anyone other than the patient for history (EMS, parent, family, police, friend...)? What history was obtained from this source @ -No Did you review nursing and triage notes (agree or disagree)? Why? @ -I reviewed and agree with nursing and triage notes Were old charts reviewed (outside hosp., previous admission, EMS record, old EKG, old radiological studies, urgent care reports/EKG's, care home records)? Report findings @ -No old charts were reviewed Differential Diagnosis (chest pain, altered mental status, abdominal pain women, abdominal pain men, vaginal bleeding, weakness, fever, dyspnea, syncope, he adache, dizziness, GI bleed, back pain, seizure, CVA, palpatations, mental health, musculoskeletal)? @ -Differential Back Pain: Strain, zoster, cauda equina syndrome, epidural abscess, vertebral oste omyelitis, discitis, fracture, subluxation, disc herniation, DJD, spinal stenosis, dissection, AAA, pancreatitis, peptic ulcer disease, pyelonephritis, kidney stone, this is not meant to be an all-inclusive list. EKG interpreted by me (3pts min.). @ -None X-rays interpreted by me (1pt min.). @ -X-ray of the pelvis no acute fracture dislocation X-ray of the lumbar spine reveals no acute fracture or dislocation CT interpreted by me (1pt min.). @ -None done U/S interpreted by me (1pt. min.). @ -None done What testing was considered but not performed or refused? (CT, X-rays, U/S, labs)? Why? @ -None What meds were considered but not given or refused? Why? @ -None Did you discuss the management of the patient with other professionals (professionals i.e. , PA, WILDLIFE BIOSTATION RESEARCH ECOLOGIST, lab, RT, psych nurse, certified social workers in health care, assistant associate full professor, teacher, commanding officer garage, case supervisor)? Give summary @ -No Was smoking cessation discussed for >3mins.? @ -No Was critical care preformed (if so, how long)? @ -No Were there social determinants of health that impacted care today? How? (Homelessness, low income, unemployed, alcoholism, drug addiction, transportation, low edu. Level, literacy, decrease access to med. care, detention, rehab)? @ -No Was there de-escalation of care discussed even if they declined (Discuss DNR or withdrawal of care, Hospice)? DNR status @ -No What co-morbidities impacted this encounter? (DM, HTN, Smoking, COPD, CAD, Cancer, CVA, ARF, Chemo, Hep., AIDS, mental health diagnosis, sleep apnea, morbid obesity)? @ -None Was patient admitted / discharged? Hospital course, mention meds given and route, prescriptions, significant lab abnormalities, going to OR and other pertinent info. @ -Discharge. 84-year-old female presenting via EMS after a fall. Patient was originally evaluated as a quick note in the emergency department waiting room where x-ray imaging is ordered. On evaluation patient is resting comfortably in a wheelchair. X-ray imaging is unremarkable. There are no red flag findings concerning for cauda equina. Patient is able to ambulate. She is stable for discharge. Recommend she continue supportive treatment at home. Case discussed with my attending Dr. Green Undiagnosed new problem with uncertain prognosis? @ -No Drug Therapy requiring intensive monitoring for toxicity (Heparin, Nitro, Insulin, Cardizem)? @ -No Were any procedures done? @ -No Diagnosis/symptom? @ -Fall, lumbar back pain Acute, or Chronic, or Acute on Chronic? @ -Acute Uncomplicated (without systemic symptoms) or Complicated (systemic symptoms)? @ -Uncomplicated Side effects of treatment? @ -No Exacerbation, Progression, or Severe Exacerbation? @ -No Poses a threat to life or bodily function? How? (Chest pain, [place], [place], pneumonia, PE, COPD, DKA, ARF, appy, cholecystitis, CVA, Diverticulitis, Homicidal, Suicidal, threat to staff... and all critical care pts) @ -No (Ines Perales) Disposition <Lucas Purvis - Last Filed: 03/20/25 15:42> Is patient prescribed a controlled substance at d/c from ED?: No Time of Disposition: 17:39 <Ines Perales - Last Filed: 03/20/25 18:48> Clinical Impression: Fall, Lumbar back sprain Disposition: HOME SELF-CARE Condition: Good Instructions (If sedation given, give patient instructions): Fall Prevention for Older Adults (ED) Additional Instructions: Please return to the Emergency Department if symptoms worsen or any other concerns. Referrals: Ana Paula Pérez MD [Primary Care Provider] - 1-2 days
--- NOTE | 2025-03-20 16:12 | XR ---
EXAMINATION TYPE: XR lumbar spine 2 or 3V DATE OF EXAM: 03/20/2025 4:04 PM COMPARISON: None. CLINICAL INDICATION: Female, 84 years old with history of fall, pain, TECHNIQUE: 3 views submitted FINDINGS: There are 5 lumbar type vertebral bodies identified. The lumbar spine shows satisfactory alignment without evidence of acute fracture or dislocation. Vertebral body heights are within normal limits. Severe degenerative disc disease with vacuum disc L4-5 and L5-S1. The overlying soft tissue appears unremarkable. IMPRESSION: No acute fracture or dislocation is seen in the lumbar spine.ICD 10 NO FRACTURE, INITIAL EVALUATION [facility], , 03/20/2025 4:10 PM
--- NOTE | 2025-03-20 16:12 | XR ---
EXAMINATION TYPE: XR pelvis AP view DATE OF EXAM: 03/20/2025 4:04 PM COMPARISON: None. CLINICAL INDICATION: Female, 84 years old with history of fall, pain, pain TECHNIQUE: XR pelvis AP view views were obtained FINDINGS: No evidence for fracture, dislocation or bony lesion. Joint spaces are well-preserved. S I joints appear symmetric. IMPRESSION: No acute fracture or dislocation seen. [facility], , 03/20/2025 4:09 PM
== END 2025-03-20 18:07 | disposition home or self-care (01) ==
LOC: EC 15:34
DX: S33.5XXA Sprain of ligaments of lumbar spine, initial encounter (principal); Z87.891 Personal history of nicotine dependence; Z88.2 Allergy status to sulfonamides; Z88.1 Allergy status to other antibiotic agents; Z88.8 Allergy status to other drugs, medicaments and biological substances; W01.198A Fall on same level from slipping, tripping and stumbling with subsequent striking against other object, initial encounter; Y92.002 Bathroom of unspecified non-institutional (private) residence as the place of occurrence of the external cause
CPT/HCPCS: 72100; 72170; 99283

== ENCOUNTER 2025-03-25 21:09 | Inpatient (IN) | payer MEDICARE, BC ==
--- NOTE | 2025-03-25 21:11 | ED ---
Recheck HPI - General Stated Complaint: Lumbar Fracture, Ortho Consult Time Seen by Provider: 03/25/25 21:11 Source: RN notes reviewed, old records reviewed Mode of arrival: ambulatory Limitations: no limitations - History of Present Illness Initial Comments: This is a 84-year-old female to the ER for evaluation patient presents today for evaluation of severe back pain patient had a fall weeks ago no recent falls but is having severe pain here in the emergency department patient was transferred from outside facility secondary to back fracture -: days(s) Returns Today for: Called Because of Abnormal Lab/Test, persistent/worsening pain related to initial visit Symptoms Since Prior Visit: worsening pain Associated Symptoms: none Treatments Prior to Arrival: Given Pain Meds on - Related Data Home Medications Medication Instructions Recorded Confirmed Fluticasone/Vilanterol [Breo 1 puff INHALATION RT-DAILY 09/21/18 03/26/25 Ellipta 200-25 Mcg Inhaler] Omeprazole [PriLOSEC] 20 mg PO DAILY 09/21/18 03/26/25 Primidone [Mysoline] 50 mg PO HS 09/21/18 03/26/25 Simethicone [Gas-X] 125 mg PO QID PRN 09/21/18 03/26/25 Albuterol Sulfate [Ventolin HFA] 1 puff INHALATION RT-QID PRN 09/26/21 03/26/25 Amiodarone HCl [Pacerone] 100 mg PO DAILY 09/26/21 03/26/25 Metoprolol Succinate (ER) [Toprol 50 mg PO BID 09/26/21 03/26/25 XL] Sacubitril/Valsartan [Entresto 49 1 tab PO BID 09/26/21 03/26/25 mg-51 mg Tablet] Acetaminophen Tab [Tylenol] 500 mg PO Q6HR PRN 03/26/25 03/26/25 Calcium 600mg+ Vitamin D(Unknown 1 tab PO DAILY 03/26/25 03/26/25 Dose) Fluocinonide 0.05% Solution 1 applic TOPICAL Q3D PRN 03/26/25 03/26/25 Fluocinonide 0.05% [Lidex 0.05% 1 applic TOPICAL Q3D PRN 03/26/25 03/26/25 cream] Levothyroxine Sodium [Synthroid] 75 mcg PO DAILY 03/26/25 03/26/25 Multivit-Min/Iron/Folic/Lutein 1 tab PO DAILY 03/26/25 03/26/25 [Centrum Silver Women Tablet] Topiramate [Topiramate (Sprinkle)] 30 mg PO HS 03/26/25 03/26/25 Previous Rx's Medication Instructions Recorded HYDROcodone/APAP 5-325MG [[place] 5] 1 each PO Q8HR PRN #21 tab 03/29/25 ALPRAZolam [Xanax] 0.25 mg PO DAILY PRN #3 tab 03/30/25 Lidocaine 4% Patch 1 patch TOPICAL DAILY #3 patch 03/30/25 Mirtazapine [Remeron] 15 mg PO HS #3 tab 03/30/25 Psyllium Husk 100% [Metamucil 6 gm PO DAILY packet 03/30/25 Packet] Sennosides-Docusate Sodium 1 each PO BID PRN tab 03/30/25 [Senokot-S] Sennosides-Docusate Sodium 1 tab PO BID PRN #60 tablet 03/30/25 [Senokot-S] diphenhydrAMINE [Benadryl] 25 mg PO TID PRN cap 03/30/25 Allergies Allergy/AdvReac Type Severity Reaction Status Date / Time ciprofloxacin [From Cipro] Allergy Unknown Verified 03/26/25 11:17 morphine Allergy Unknown Verified 03/26/25 11:17 nabumetone Allergy Unknown Verified 03/26/25 11:17 sulfadiazine Allergy Unknown Verified 03/26/25 11:17 sulfamethizole Allergy Unknown Verified 03/26/25 11:17 adhesive tape AdvReac TEARS Verified 03/26/25 11:17 SKIN, VERY THIN SKIN ANTIBACTERIAL SOAP AdvReac Unknown IRRITATES Uncoded 03/26/25 11:17 SKIN, UNABLE TO USE Review of Systems ROS Statement: Those systems with pertinent positive or pertinent negative responses have been documented in the HPI. ROS Other: All systems not noted in ROS Statement are negative. 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 IBS. "KIDNEY TURNED WRONG WAY," HX SL ABN RFP. LT HUMERUS FX, IN SPLINT/SLING; ? SYNCOPAL EPISODE W/ HX FALL 6 WKS AGO; FELT A SNAP IN ARM 09/16/18. SCOLIOSIS, OSTEOPOROSIS. PSORIASIS-LIKE COND, PATCHES ON ARMS. TREMORS LT HAND. VARICOSE VEINS. POS EDEMA ANKLES. HAD STEROID RX IN PAST MONTH FOR COUGH. History of Any Multi-Drug Resistant Organisms: None Reported Past Surgical History: Cholecystectomy, Heart Catheterization Additional Past Surgical History / Comment(s): LEFT ARM FX WITH MARISELA, CATARACTS WITH LENS IMPLANTS Past Anesthesia/Blood Transfusion Reactions: Postoperative Nausea & Vomiting (PONV) Past Psychological History: Anxiety, Depression Additional Psychological History / Comment(s): LIVES ALONE. Smoking Status: Former smoker Past Alcohol Use History: None Reported Additional Past Alcohol Use History / Comment(s): SMOKED SOCIALLY, QUIT IN HER 20'S. Past Drug Use History: None Reported - Past Family History Mother Family Medical History: Cancer Additional Family Medical History / Comment(s): THYROID CA General Exam General appearance: alert, in no apparent distress Head exam: Present: atraumatic, normocephalic, normal inspection Eye exam: Present: normal appearance, PERRL, EOMI. Absent: scleral icterus, conjunctival injection, periorbital swelling ENT exam: Present: normal exam, mucous membranes moist Neck exam: Present: normal inspection. Absent: tenderness, meningismus, lymphadenopathy Respiratory exam: Present: normal lung sounds bilaterally. Absent: respiratory distress, wheezes, rales, rhonchi, stridor Cardiovascular Exam: Present: regular rate, normal rhythm, normal heart sounds. Absent: systolic murmur, diastolic murmur, rubs, gallop, clicks GI/Abdominal exam: Present: soft, normal bowel sounds. Absent: distended, tenderness, guarding, rebound, rigid Extremities exam: Present: normal inspection, full ROM, normal capillary refill. Absent: tenderness, pedal edema, joint swelling, calf tenderness Back exam: Present: normal inspection, tenderness, muscle spasm, paraspinal tenderness, vertebral tenderness. Absent: full ROM Neurological exam: Present: alert, oriented X3, CN II-XII intact Psychiatric exam: Present: normal affect, normal mood Skin exam: Present: warm, dry, intact, normal color. Absent: rash Course Vital Signs 03/25/25 03/26/25 03/26/25 21:12 01:29 02:03 Temperature 98.5 F 98 F 97.9 F Pulse Rate 66 58 L 60 Respiratory 18 16 16 Rate Blood Pressure 178/107 140/93 153/94 O2 Sat by Pulse 97 98 98 Oximetry - Reevaluation(s) Reevaluation #1: 03/25/25 22:54 Medical records reviewed Reevaluation #2: 03/25/25 22:55 Patient has adequate pain control Reevaluation #3: 03/25/25 22:55 Patient informed of results and questions answered Reevaluation #4: Was pt. sent in by a medical professional or institution (, MEGGAN, WATCH ENGINEER, urgent care, hospital, or correction...) When possible be specific @ -no Did you speak to anyone other than the patient for history (EMS, parent, family, police, friend...)? What history was obtained from this source @ -no Did you review nursing and triage notes (agree or disagree)? Why? @ -agree Are old charts reviewed (outside hosp., previous admission, EMS record, old EKG, old radiological studies, urgent care reports/EKG's, correction records)? Report findings @ -yes Differential Diagnosis (chest pain, altered mental status, abdominal pain women, abdominal pain men, vaginal bleeding, weakness, fever, dyspnea, syncope, headache, dizziness, GI bleed, back pain, seizure, CVA, palpatations, mental health, musculoskeletal)? @ -prior EKG interpreted by me (3pts min.). @ -yes X-rays interpreted by me (1pt min.). @ -no CT interpreted by me (1pt min.). @ -yes negative for acute disease U/S interpreted by me (1pt. min.). @ -no What testing was considered but not performed or refused? (CT, X-rays, U/S, labs)? Why? @ -none What meds were considered but not given or refused? Why? @ -none Did you discuss the management of the patient with other professionals (professionals i.e. MEGGAN Cabello, WATCH ENGINEER, lab, RT, psych nurse, social welfare administrator, plater production, teacher, admissions officer, case sealer)? Give summary @ -no Was smoking cessation discussed for >3mins.? @ -no Was critical care preformed (if so, how long)? @ -no Were there social determinants of health that impacted care today? How? (Homelessness, low income, unemployed, alcoholism, drug addiction, transportatio n, low edu. Level, literacy, decrease access to med. care, senior living, rehab)? @ -none Was there de-escalation of care discussed even if they declined (Discuss DNR or withdrawal of care, Hospice)? DNR status @ -no What co-morbidities impacted this encounter? (DM, HTN, Smoking, COPD, CAD, Cancer, CVA, ARF, Chemo, Hep., AIDS, mental health diagnosis, sleep apnea, morbid obesity)? @ -none Was patient admitted / discharged? Hospital course, mention meds given and route, prescriptions, significant lab abnormalities, going to OR and other pertinent info. @ - 84 female to the ER for evaluation patient will be admitted for severe back pain uncontrolled back pain here in the emergency department. Weakness Admitted Undiagnosed new problem with uncertain prognosis? @ -no Drug Therapy requiring intensive monitoring for toxicity (Heparin, Nitro, Insulin, Cardizem)? @ -no Were any procedures done? @ -no Diagnosis/symptom? @ -Weakness, uncontrolled back pain, compression fracture lumbar spine Acute, or Chronic, or Acute on Chronic? @ -Acute Uncomplicated (without systemic symptoms) or Complicated (systemic symptoms)? @ -Complicated Side effects of treatment? @ -no Exacerbation, Progression, or Severe Exacerbation? @ -exacerbation Poses a threat to life or bodily function? How? (Chest pain, USA, GA, pneumonia, PE, COPD, DKA, ARF, appy, cholecystitis, CVA, Diverticulitis, Homicidal, Suic idal, threat to staff... and all critical care pts) @ -yes extremes of age Reevaluation #5: Differential Back Pain: Strain, zoster, cauda equina syndrome, epidural abscess, vertebral osteomyelitis, discitis, fracture, subluxation, disc herniation, DJD, spinal stenosis, dissection, AAA, pancreatitis, peptic ulcer disease, pyelonephritis, kidney stone, this is not meant to be an all-inclusive list. - Consultations Consultation #1: Spoke with Dr. Lim agrees to admit this patient Medical Decision Making - Medical Decision Making 84 female to the ER for evaluation patient will be admitted for severe back pain uncontrolled back pain here in the emergency department. Weakness - Lab Data Result diagrams: 03/29/25 04:03/29/25 04:00 - Radiology Data Radiology results: report reviewed (CT lumbar spine outpatient positive LS compression fractures, CT brain C-spine here in the ER negative for acute disease), image reviewed Disposition Clinical Impression: Weakness, Back pain, Closed compression fracture of lumbosacral spine Disposition: ADMITTED IP TO THIS HOSP Condition: Fair Is patient prescribed a controlled substance at d/c from ED?: No Time of Disposition: 22:30
[2025-03-25] MEDS ORDERED: NALOXONE 0.4 MG/ML 1 ML VIAL IV PRN (22:10)
[2025-03-25] MEDS ORDERED: ONDANSETRON 4 MG/2 ML VIAL IVP PRN (22:12)
[2025-03-25] MEDS: HYDROmorphone 1 MG/ML 1 ML SYRINGE IVP STA (22:38)
[2025-03-25] MEDS: SODIUM CHLORIDE 0.9% 1,000 ML IV SCH (22:40)
[2025-03-25] MEDS: LIDOCAINE 4% PATCH TOPICAL ONE (22:42)
[2025-03-25 23:06] LABS: Basophils # (A) 0.07 10*3/uL (0.00-0.10); Basophils % (A) 0.8 %; Eosinophils # (A) 0.29 10*3/uL (0.04-0.35); Eosinophils % (A) 3.5 %; HCT 38.9 % (37.2-46.3); HGB 13.0 g/dL (12.0-15.0); Lymphocytes # (A) 1.23 10*3/uL (0.90-5.00); Lymphocytes % (A) 14.7 %; MCH 31.6 pg (27.0-32.0); MCHC 33.4 g/dL (32.0-37.0); MCV 94.6 fL (80.0-97.0); Monocytes # (A) 0.97 10*3/uL (0.20-1.00); Monocytes % (A) 11.6 %; Neutrophils # (A) 5.74 10*3/uL (1.80-7.70); Neutrophils % (A) 68.8 %; Platelet Count 216 10*3/uL (140-440); RBC 4.11 10*6/uL (4.10-5.20); RDW 13.5 % (11.5-14.5); WBC 8.35 10*3/uL (4.50-10.00)
[2025-03-25 23:32] LABS: INR 1.0 (<1.2); Partial Thromboplastin Time 25.5 sec (22.0-30.0); Prothrombin Time 10.6 sec (10.0-12.5)
--- NOTE | 2025-03-26 00:10 | CT ---
EXAM: CT Head Without Intravenous Contrast CLINICAL HISTORY: ITS.REASON CT Reason: pain TECHNIQUE: Axial computed tomography images of the head/brain without intravenous contrast. CTDI is 45.2 mGy and DLP is 1034 mGy-cm. This CT exam was performed using one or more of the following dose reduction techniques: automated exposure control, adjustment of the mA and/or kV according to patient size, and/or use of iterative reconstruction technique. COMPARISON: No relevant prior studies available. FINDINGS: No acute intracranial hemorrhage. No midline shift or mass effect. The territorial uriarte-white matter differentiation is maintained throughout. Age-related cerebral volume loss. Periventricular and subcortical white matter hypoattenuation, consistent with chronic microangiopathy. The visualized orbits appear grossly unremarkable. The calvarium is intact. The visualized paranasal sinuses and mastoid air cells are grossly clear. IMPRESSION: No acute intracranial hemorrhage, midline shift, or mass effect. EXAM: CT Cervical Spine Without Intravenous Contrast CLINICAL HISTORY: ITS.REASON CT Reason: pain TECHNIQUE: Axial computed tomography images of the cervical spine without intravenous contrast. CTDI is 6.9 mGy and DLP is 198.9 mGy-cm. This CT exam was performed using one or more of the following dose reduction techniques: automated exposure control, adjustment of the mA and/or kV according to patient size, and/or use of iterative reconstruction technique. COMPARISON: No relevant prior studies available. FINDINGS: The vertebral body heights are maintained. The craniocervical junction is intact. The atlanto-dens interval is maintained. The dens is intact. Grade 1 anterolisthesis of C3 on C4 measures 2 mm and C4 on C5 measures 5 mm. Multilevel cervical spondylosis and degenerative disc disease. Straightening of the cervical lordosis. IMPRESSION: 1. No acute fracture of the cervical spine. 2. Grade 1 anterolisthesis of C3 on C4 measures 2 mm and C4 on C5 measures 5 mm.
[2025-03-26 00:39] LABS: ALT 10 U/L (4-34); AST 22 U/L (14-36); African American GFR (CKD) 42 (>60 ml/min/1.73 sqM); Albumin 3.8 g/dL (3.5-5.0); Alkaline Phosphatase 89 U/L (38-126); Anion Gap 13 mmol/L; Blood Urea Nitrogen 23 mg/dL (7-17); Calcium 9.9 mg/dL (8.4-10.2); Carbon Dioxide 19 mmol/L (22-30); Chloride 100 mmol/L (98-107); Glucose 68 mg/dL (74-99); Magnesium 1.7 mg/dL (1.6-2.3); Non-African American GFR(CKD) 36 (>60 ml/min/1.73 sqM); Potassium 4.2 mmol/L (3.5-5.1); Sodium 132 mmol/L (137-145); Total Protein 7.0 g/dL (6.3-8.2)
[2025-03-26 01:29] LABS: Glucose,Whole Blood 71 mg/dL (70-110)
[2025-03-26] MEDS: HYDROmorphone 1 MG/ML 1 ML SYRINGE IVP PRN (02:41)
[2025-03-26 03:27] LABS: Basophils # (A) 0.08 10*3/uL (0.00-0.10); Basophils % (A) 1.1 %; Eosinophils # (A) 0.33 10*3/uL (0.04-0.35); Eosinophils % (A) 4.4 %; HCT 35.6 % (37.2-46.3); HGB 11.5 g/dL (12.0-15.0); Lymphocytes # (A) 1.13 10*3/uL (0.90-5.00); Lymphocytes % (A) 15.2 %; MCH 31.3 pg (27.0-32.0); MCHC 32.3 g/dL (32.0-37.0); MCV 96.7 fL (80.0-97.0); Monocytes # (A) 0.95 10*3/uL (0.20-1.00); Monocytes % (A) 12.8 %; Neutrophils # (A) 4.91 10*3/uL (1.80-7.70); Neutrophils % (A) 66.1 %; Platelet Count 209 10*3/uL (140-440); RBC 3.68 10*6/uL (4.10-5.20); RDW 13.6 % (11.5-14.5); WBC 7.43 10*3/uL (4.50-10.00)
[2025-03-26 03:43] LABS: ALT 8 U/L (4-34); AST 21 U/L (14-36); African American GFR (CKD) 39 (>60 ml/min/1.73 sqM); Albumin 3.4 g/dL (3.5-5.0); Alkaline Phosphatase 83 U/L (38-126); Anion Gap 10 mmol/L; Blood Urea Nitrogen 26 mg/dL (7-17); Calcium 9.4 mg/dL (8.4-10.2); Carbon Dioxide 20 mmol/L (22-30); Chloride 100 mmol/L (98-107); Glucose 71 mg/dL (74-99); Magnesium 1.7 mg/dL (1.6-2.3); Non-African American GFR(CKD) 34 (>60 ml/min/1.73 sqM); Potassium 4.2 mmol/L (3.5-5.1); Sodium 130 mmol/L (137-145); Total Protein 6.3 g/dL (6.3-8.2)
[2025-03-26] MEDS: LIDOCAINE 4% PATCH TOPICAL SCH (08:41)
--- NOTE | 2025-03-26 09:11 | P.CNOR ---
History of Present Illness - [facility] Consult date: 03/26/25 Requesting physician: Ranjit Whatley Consult reason: fracture (L4 superior endplate compression fracture), low back pain History of present illness: Patient is a pleasant 84-year-old female who is seen examined at bedside for further evaluation of her lumbar spine. We were consulted by medicine after previous imaging showed evidence of compression fracture deformity at L4. She does have a history of previous T12 kyphoplasty with biopsy performed on 10/06/2021. She recently sustained a fall. She states she has fallen twice. She does have increased low back pain since that time. She did have difficulty with TLSO bracing in the past. She states she was experiencing some cervical pain at the time she presented to the emergency department as well. CT imaging was taken. She is not currently complaining of any significant cervical pain. She is admitted to medicine and is being seen by medicine. Her medical history includes hypertension, COPD, and upper extremity tremor. She admits to right hip fracture in September 2019 for undergoing surgical intervention at [facility].. 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 IBS. "KIDNEY TURNED WRONG WAY," HX SL ABN RFP. LT HUMERUS FX, IN SPLINT/SLING; ? SYNCOPAL EPISODE W/ HX FALL 6 WKS AGO; FELT A SNAP IN ARM 09/16/18. SCOLIOSIS, OSTEOPORO SIS. PSORIASIS-LIKE COND, PATCHES ON ARMS. TREMORS LT HAND. VARICOSE VEINS. POS EDEMA ANKLES. HAD STEROID RX IN PAST MONTH FOR COUGH. History of Any Multi-Drug Resistant Organisms: None Reported Past Surgical History: Cholecystectomy, Heart Catheterization Additional Past Surgical History / Comment(s): LEFT ARM FX WITH MARISELA, CATARACTS WITH LENS IMPLANTS Past Anesthesia/Blood Transfusion Reactions: No Reported Reaction, Postoperative Nausea & Vomiting (PONV) Past Psychological History: Anxiety, Depression Additional Psychological History / Comment(s): LIVES ALONE. Smoking Status: Former smoker Past Alcohol Use History: None Reported Additional Past Alcohol Use History / Comment(s): SMOKED SOCIALLY, QUIT IN HER 20'S. Past Drug Use History: None Reported - Past Family History Mother Family Medical History: Cancer Additional Family Medical History / Comment(s): THYROID CA Medications and Allergies Home Medications Medication Instructions Recorded Confirmed Type Fluticasone/Vilanterol [Breo 1 inhalation INHALATION RT-DAILY 09/21/18 09/26/21 History Ellipta 200-25 Mcg Inhaler] Loratadine [Claritin] 10 mg PO DAILY PRN 09/21/18 10/06/21 History Omeprazole [PriLOSEC] 20 mg PO AC-BRKFST 09/21/18 10/06/21 History Primidone [Mysoline] 50 mg PO HS 09/21/18 10/06/21 History Simethicone [Gas-X] 125 mg PO DAILY PRN 09/21/18 09/26/21 History ALPRAZolam [Xanax] 0.25 mg PO TID PRN 09/26/21 09/26/21 History Albuterol Sulfate [Ventolin HFA] 1 - 2 puff INHALATION Q6H PRN 09/26/21 09/26/21 History Amiodarone HCl [Pacerone] 100 mg PO DAILY 09/26/21 09/26/21 History Ascorbic Acid [Vitamin C] 500 mg PO DAILY 09/26/21 09/26/21 History Calcium Carbonate [Calcium] 600 mg PO DAILY 09/26/21 09/26/21 History HYDROcodone/APAP 5-325MG [[place] 1 tab PO BID PRN 09/26/21 10/06/21 History 5-325] Levothyroxine Sodium 88 mcg PO DAILY 09/26/21 10/06/21 History Metoprolol Succinate (ER) [Toprol 50 mg PO BID 09/26/21 09/26/21 History Xl] Multivit with Calcium,Iron,Min 1 each PO DAILY 09/26/21 09/26/21 History [Women's Multivitamin] Sacubitril/Valsartan [Entresto 49 1 each PO BID 09/26/21 09/26/21 History mg-51 mg Tablet] Triamcinolone Acetonide 1 % 1 applicate TOPICAL DAILY 09/26/21 History methocarbamoL [Robaxin-750] 750 mg PO TID PRN 09/26/21 10/06/21 History Nitrofurantoin Monohyd/M-Cryst 100 mg PO Q12HR 10/01/21 10/01/21 History [Macrobid] Nitrofurantoin Monohyd/M-Cryst 100 mg PO Q12HR 10/06/21 10/06/21 History [Macrobid] Allergies Allergy/AdvReac Type Severity Reaction Status Date / Time ciprofloxacin [From Cipro] Allergy Unknown Verified 03/25/25 21:17 morphine Allergy Unknown Verified 03/25/25 21:17 nabumetone Allergy Unknown Verified 03/25/25 21:17 sulfadiazine Allergy Unknown Verified 03/25/25 21:17 sulfamethizole Allergy Unknown Verified 03/25/25 21:17 adhesive tape AdvReac TEARS Verified 03/25/25 21:17 SKIN, VERY THIN SKIN ANTIBACTERIAL SOAP AdvReac Unknown IRRITATES Uncoded 03/25/25 21:17 SKIN, UNABLE TO USE Physical Examination Physical exam: Patient is awake, alert, and oriented 3 Vital signs stable Good chest excursion with deep inspiration and expiration Abdomen soft nontender Examination of lumbar spine reveals skin is intact with no abrasions, lacerations, or bruises; no erythema, purulence or signs of infection Pain with palpation along the midline of the lumbar spine Dorsiflexion, plantarflexion, and extensor hallucis longus positive sustained bilaterally Lower extremity strength 5/5 bilaterally No lower extremity hyperreflexia bilaterally Straight leg test negative bilateral lower extremities No signs or symptoms of DVT; no calf pain No pain with internal and external rotation of the hips bilaterally Neurovascularly intact Results Pertinent studies: X-ray of the pelvis taken 03/20/2025: Evidence of right total hip arthroplasty which hardware appears to be in good alignment good position; left hip osteoarthritis; no fracture or dislocation within the pelvis X-rays of the lumbosacral spine taken on 03/20/2025: Evidence of previous kyphoplasty at T12; degenerative scoliosis; L4 superior endplate compression fracture deformity with approximately 50% height loss; L4-5 severe asymmetric degenerative disc disease, lateral listhesis and slight spondylolisthesis; L5-S1 end-stage degenerative disc disease and slight spondylolisthesis; lower anterior osteophytic spurring CT of the head and cervical spine taken on 03/25/2025: C3-7 end-stage degenerative disc disease; L3-4 spondylolisthesis; L4-5 significant spondylolisthesis; significant spondylosis; no obvious fracture - Labs Labs: Abnormal Lab Results - Last 24 Hours (Table) 03/25/25 03/25/25 03/26/25 Range/Units 22:43 22:43 02:59 RBC 3.68 L (4.10-5.20) 10*6/uL Hgb 11.5 L (12.0-15.0) g/dL Hct 35.6 L (37.2-46.3) % Immature Gran # 0.05 H (0.00-0.04) 10*3/uL Sodium 132 L (137-145) mmol/L Carbon Dioxide 19 L (22-30) mmol/L BUN 23 H (7-17) mg/dL Creatinine 1.35 H (0.52-1.04) mg/dL Glucose 68 L (74-99) mg/dL Albumin (3.5-5.0) g/dL 03/26/25 Range/Units 02:59 RBC (4.10-5.20) 10*6/uL Hgb (12.0-15.0) g/dL Hct (37.2-46.3) % Immature Gran # (0.00-0.04) 10*3/uL Sodium 130 L (137-145) mmol/L Carbon Dioxide 20 L (22-30) mmol/L BUN 26 H (7-17) mg/dL Creatinine 1.42 H (0.52-1.04) mg/dL Glucose 71 L (74-99) mg/dL Albumin 3.4 L (3.5-5.0) g/dL H & H 03/25/25 03/26/25 Range/Units 22:43 02:59 Hgb 13.0 11.5 L (12.0-15.0) g/dL Hct 38.9 35.6 L (37.2-46.3) % Coagulation 03/25/25 Range/Units 22:43 INR 1.0 (<1.2) Result Diagrams: 03/26/25 02:59 03/26/25 02:59 Assessment and Plan Assessment: Assessment: L4 superior endplate compression fracture deformity History of T12 kyphoplasty Low back pain L4-5 and L5-S1 spondylolisthesis L4-5 asymmetric degenerative disc disease and lateral listhesis Degenerative scoliosis Lumbar and lumbosacral degenerative disc disease Lumbar osteophytic spurring C3-7 severe degenerative disc disease C3-4 and C4-5 spondylolisthesis History of right hip hemiarthroplasty Upper extremity tremor COPD Hypertension (1) Compression fracture of L4 vertebra Current Visit: Yes Status: Acute Code(s): S32.040A - WEDGE COMPRESSION FRACTURE OF FOURTH LUMBAR VERTEBRA, INIT SNOMED Code(s): 443828945 (2) Multiple falls Current Visit: Yes Status: Acute Code(s): R29.6 - REPEATED FALLS SNOMED Code(s): 726122035 (3) Acute low back pain Current Visit: Yes Status: Acute Code(s): M54.50 - LOW BACK PAIN, UNSPECIFIED SNOMED Code(s): 640285692 (4) Degenerative cervical disc Current Visit: Yes Status: Acute Code(s): M50.30 - OTHER CERVICAL DISC DEGENERATION, UNSP CERVICAL REGION SNOMED Code(s): 33300869 (5) Spondylolisthesis, cervical region Current Visit: Yes Status: Acute Code(s): M43.12 - SPONDYLOLISTHESIS, CERVICAL REGION SNOMED Code(s): 264497775 (6) History of right hip hemiarthroplasty Current Visit: Yes Status: Acute Code(s): Z96.641 - PRESENCE OF RIGHT AR TIFICIAL HIP JOINT SNOMED Code(s): 110671159 (7) COPD (chronic obstructive pulmonary disease) Current Visit: Yes Status: Acute Code(s): J44.9 - CHRONIC OBSTRUCTIVE PULMONARY DISEASE, UNSPECIFIED SNOMED Code(s): 34352838 (8) Hypertension Current Visit: Yes Status: Acute Code(s): I10 - ESSENTIAL (PRIMARY) HYPERTENSION SNOMED Code(s): 58310981 (9) Tremor Current Visit: Yes Status: Acute Code(s): R25.1 - TREMOR, UNSPECIFIED SNOMED Code(s): 99522958 Plan: Plan: 1. Maral has sustained multiple falls. She does have increased back pain since that time. Reviewing of imaging shows evidence of L4 superior endplate compression fracture deformity. She has a history of T12 kyphoplasty with biopsy performed on 10/06/2021. She states she has had difficulty with TLSO bracing in the past. We did discuss she would be a candidate for an LSO brace with the possibility of surgical intervention at L4. Patient states at the bedside she is not currently sure what she wants to do. She is unsure if she wants to try bracing or possibly proceed forward with L4 kyphoplasty with biopsy if medically cleared. She would like to currently think about her treatment options. We would consider bracing if she wants to continue with conservative treatment. We did discuss she should not work through formal physical therapy currently during her admission to the hospital without LSO bracing. We will continue to follow the patient and we will follow-up with a plan of care depending on what the patient would like to do in terms of her care. Patient should avoid bending, twisting, lifting. No lifting greater than 10 pounds. 2. Patient will continue to be seen examined by medicine for her other medical diagnoses. Time with Patient: Greater than 30 (Including obtaining history, physical examination, reviewing of imaging, and dictation.)
[2025-03-26] MEDS: ENOXAPARIN 40 MG/0.4 ML SYRINGE SQ SCH (11:16)
[2025-03-26] MEDS: diphenhydrAMINE 25 MG CAP PO PRN (12:30)
[2025-03-26] MEDS ORDERED: ALBUTEROL NEBULIZED 2.5 MG/3 ML INHALATION PRN (12:53)
[2025-03-26] MEDS ORDERED: ALPRAZolam 0.25 MG TAB PO PRN (12:53)
[2025-03-26] MEDS ORDERED: ACETAMINOPHEN TAB 500 MG TAB PO PRN (12:53)
[2025-03-26] MEDS ORDERED: BETAMETHASONE DIPROPIONATE 0.05% OINTMENT 45 GM TUBE TOPICAL PRN (12:53)
[2025-03-26] MEDS: SYMBICORT 160-4.5 MCG INHALER INHALATION SCH (13:17)
--- NOTE | 2025-03-26 14:27 | P.HPIM ---
History of Present Illness H&P Date: 03/26/25 Chief Complaint: Fall Pleasant 84-year-old patient, follows with Dr. Ana Paula Pérez. Chronic medical conditions include asthma, GERD, hard of hearing, hypertension, osteoarthritis, chronic pruritus for which she follows with dermatology, hiatal hernia, IBS, scoliosis, osteoporosis tremor of the left hand. Anxiety depression. Lives by self. Patient was transferred to the ER from [facility]. She does have a previous T12 kyphoplasty in September 2021. Recently had a fall. At least x 2. Having increasing pain in the lumbar area in the neck area. She has had difficulty wearing her TLSO bracing in the past. Decreased appetite. No respiratory symptoms. Review of systems: GEN.: Tired decreased appetite EYES: None HEENT: Decreased hearing NECK: None RESPIRATORY: None CARDIOVASCULAR: None GASTROINTESTINAL: None GENITOURINARY: None MUSCULOSKELETAL: Pain in multiple joints including lower back neck] LYMPHATICS: None HEMATOLOGICAL: None PSYCHIATRY: [Anxious NEUROLOGICAL: Does use her walker or cane Social history: No smoking. No alcohol. Lives alone Physical examination: VITAL SIGNS: 97.6, 59, 18, 157 x 75, 96% room air GENERAL: [BMI 16.5, thin built laying in bed uncomfortable EYES: [Pupils equal. Conjunctiva brain l. HEENT: External appearance of nose and ears normal, oral cavity grossly normal. Decreased hearing NECK: JVD not raised; masses not palpable. HEART: First and second heart sounds are normal; no edema. LUNGS: Respiratory rate normal; clear to auscultation. ABDOMEN: Soft, nontender, liver spleen not palpable, no masses palpable. PSYCH: Alert and oriented x3; mood and affect brain l. MUSCULOSKELETAL:No Clubbing/cyanosis;muscles-grossly intact. Prominent bones. Loss of muscle mass subcutaneous fat. OA in multiple joints. Pain on movement of lower back. NEUROLOGICAL: Cranial nerves grossly intact; no facial asymmetry, power and sensation grossly intact. LYMPHATICS: No lymph nodes palpable in the axilla and neck INVESTIGATIONS, reviewed in the clinical context: March 26, 2025: White count 7.3 hemoglobin 11.5 platelets 209 sodium 130 potassium 4.2 BUN 26 creatinine 1.42 glucose [address]: No acute fracture cervical spine. Grade 1 anterolisthesis C3 on C4. Outside facility reported compression fracture deformities L4 Assessment plan: - L4 superior endplate compression fracture deformity., Causing acute lumbar pain. Precipitated by fall recently Pain control. Orthopedics consulted - History of T12 kyphoplasty September 2021 - Lumbar spondylolisthesis, DJD, scoliosis, including cervical spine. No acute fracture Pain control. Orthopedics consulted Consult PT OT - Hypothyroid Synthroid 75 mcg a day. Check for over replacement - Chronic left arm tremors Mysoline - Moderate persistent asthma Breo Ellipta albuterol as needed - Chronic insomnia Remeron - GERD Prilosec - Anxiety Xanax as needed - Severe protein calorie malnutrition decreased oral intake Consult dietitian. Ensure Care was discussed with the patient. 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 IBS. "KIDNEY TURNED WRONG WAY," HX SL ABN RFP. LT HUMERUS FX, IN SPLINT/SLING; ? SYNCOPAL EPISODE W/ HX FALL 6 WKS AGO; FELT A SNAP IN ARM 09/16/18. SCOLIOSIS, OSTEOPOROSIS. PSORIASIS-LIKE COND, PATCHES ON ARMS. TREMORS LT HAND. VARICOSE VEINS. POS EDEMA ANKLES. HAD STEROID RX IN PAST MONTH FOR COUGH. History of Any Multi-Drug Resistant Organisms: None Reported Past Surgical History: Cholecystectomy, Heart Catheterization Additional Past Surgical History / Comment(s): LEFT ARM FX WITH MARISELA, CATARACTS W ITH LENS IMPLANTS Past Anesthesia/Blood Transfusion Reactions: No Reported Reaction, Postoperative Nausea & Vomiting (PONV) Past Psychological History: Anxiety, Depression Additional Psychological History / Comment(s): LIVES ALONE. Smoking Status: Former smoker Past Alcohol Use History: None Reported Additional Past Alcohol Use History / Comment(s): SMOKED SOCIALLY, QUIT IN HER 20'S. Past Drug Use History: None Reported - Past Family History Mother Family Medical History: Cancer Additional Family Medical History / Comment(s): THYROID CA Medications and Allergies Home Medications Medication Instructions Recorded Confirmed Type Fluticasone/Vilanterol [Breo 1 puff INHALATION RT-DAILY 09/21/18 03/26/25 History Ellipta 200-25 Mcg Inhaler] Loratadine [Claritin] 10 mg PO DAILY PRN 09/21/18 03/26/25 History Omeprazole [PriLOSEC] 20 mg PO DAILY 09/21/18 03/26/25 History Primidone [Mysoline] 50 mg PO HS 09/21/18 03/26/25 History Simethicone [Gas-X] 125 mg PO QID PRN 09/21/18 03/26/25 History ALPRAZolam [Xanax] 0.25 mg PO DAILY PRN 09/26/21 03/26/25 History Albuterol Sulfate [Ventolin HFA] 1 puff INHALATION RT-QID PRN 09/26/21 03/26/25 History Amiodarone HCl [Pacerone] 100 mg PO DAILY 09/26/21 03/26/25 History Metoprolol Succinate (ER) [Toprol 50 mg PO BID 09/26/21 03/26/25 History Xl] Sacubitril/Valsartan [Entresto 49 1 tab PO BID 09/26/21 03/26/25 History mg-51 mg Tablet] Acetaminophen Tab [Tylenol Tab] 500 mg PO Q6HR PRN 03/26/25 03/26/25 History Calcium 600mg+ Vitamin D(Unknown 1 tab PO DAILY 03/26/25 03/26/25 History Dose) Fluocinonide 0.05% Solution 1 applic TOPICAL Q3D PRN 03/26/25 03/26/25 History Fluocinonide 0.05% [Lidex 0.05% 1 applic TOPICAL Q3D PRN 03/26/25 03/26/25 History cream] Levothyroxine Sodium [Synthroid] 75 mcg PO DAILY 03/26/25 03/26/25 History Mirtazapine [Remeron] 15 mg PO HS 03/26/25 03/26/25 History Multivit-Min/Iron/Folic/Lutein 1 tab PO DAILY 03/26/25 03/26/25 History [Centrum Silver Women Tablet] Topiramate [Topiramate (Sprinkle)] 30 mg PO HS 03/26/25 03/26/25 History Allergies Allergy/AdvReac Type Severity Reaction Status Date / Time ciprofloxacin [From Cipro] Allergy Unknown Verified 03/26/25 11:17 morphine Allergy Unknown Verified 03/26/25 11:17 nabumetone Allergy Unknown Verified 03/26/25 11:17 sulfadiazine Allergy Unknown Verified 03/26/25 11:17 sulfamethizole Allergy Unknown Verified 03/26/25 11:17 adhesive tape AdvReac TEARS Verified 03/26/25 11:17 SKIN, VERY THIN SKIN ANTIBACTERIAL SOAP AdvReac Unknown IRRITATES Uncoded 03/26/25 11:17 SKIN, UNABLE TO USE Physical Exam Vitals: Vital Signs Temp Pulse Pulse Resp BP BP BP 03/26/25 07:17 97.6 F 59 L 18 157/75 03/26/25 06:20 65 152/75 03/26/25 03:12 97.8 F 59 L 16 155/85 03/26/25 02:30 97.8 F 60 18 205/96 03/26/25 02:03 97.9 F 60 16 153/94 03/26/25 01:29 98 F 58 L 16 140/93 03/25/25 21:12 98.5 F 66 18 178/107 Pulse Ox 03/26/25 07:17 96 03/26/25 06:20 98 03/26/25 03:12 97 03/26/25 02:30 97 03/26/25 02:03 98 03/26/25 01:29 98 03/25/25 21:12 97 Intake and Output 03/25/25 03/26/25 03/26/25 22:59 06:59 14:59 Other: # Voids 1 # Bowel Movements 1 Weight 46.266 kg 46.266 kg Results CBC & Chem 7: 03/26/25 02:59 03/26/25 02:59 Labs: Abnormal Lab Results - Last 24 Hours (Table) 03/25/25 03/25/25 03/26/25 Range/Units 22:43 22:43 02:59 RBC 3.68 L (4.10-5.20) 10*6/uL Hgb 11.5 L (12.0-15.0) g/dL Hct 35.6 L (37.2-46.3) % Immature Gran # 0.05 H (0.00-0.04) 10*3/uL Sodium 132 L (137-145) mmol/L Carbon Dioxide 19 L (22-30) mmol/L BUN 23 H (7-17) mg/dL Creatinine 1.35 H (0.52-1.04) mg/dL Glucose 68 L (74-99) mg/dL Albumin (3.5-5.0) g/dL 07/07/25 Range/Units 02:59 RBC (4.10-5.20) 10*6/uL Hgb (12.0-15.0) g/dL Hct (37.2-46.3) % Immature Gran # (0.00-0.04) 10*3/uL Sodium 130 L (137-145) mmol/L Carbon Dioxide 20 L (22-30) mmol/L BUN 26 H (7-17) mg/dL Creatinine 1.42 H (0.52-1.04) mg/dL Glucose 71 L (74-99) mg/dL Albumin 3.4 L (3.5-5.0) g/dL Thrombosis Risk Factor Assmnt - Choose All That Apply Any of the Below Risk Factors Present?: No Each Risk Factor Represents 3 Points: Age 75 years or older Thrombosis Risk Factor Assessment Total Risk Factor Score: 3 Thrombosis Risk Factor Assessment Level: Moderate Risk
[2025-03-26] MEDS: METOPROLOL SUCCINATE (ER) 50 MG TAB.ER.24H PO SCH (14:50)
[2025-03-26] MEDS: PANTOPRAZOLE 40 MG TABLET PO SCH (14:50)
[2025-03-26] MEDS: LEVOTHYROXINE 75 MCG TAB PO SCH (14:50)
[2025-03-26] MEDS: AMIODARONE 100 MG TAB PO SCH (14:51)
[2025-03-26] MEDS: SACUBITRIL/VALSARTAN 49 MG-51 MG TABLET PO SCH (14:51)
[2025-03-26 15:59] LABS: Bacteria,Urine Occasional /hpf; Bilirubin,Urine Negative (Negative); Blood,Urine Negative (Negative); Color,Urine Light Yellow; Glucose,Urine (UA) Negative (Negative); Hyaline Casts,Urine 1 /lpf (0-2); Ketones,Urine Negative (Negative); Leukocyte Esterase,Urine Large (Negative); Mucus,Urine Rare /hpf; Nitrite,Urine Negative (Negative); PH, Urine 6.0 (5.0-8.0); Protein,Urine Negative (Negative); RBC,Urine 4 /hpf (0-5); Specific Gravity,Urine 1.014 (1.001-1.035); Squamous Epithelial Cell,Urine <1 /hpf (0-4); Urobilinogen,Urine <2.0 mg/dL (<2.0); WBC,Urine 50 /hpf (0-5)
[2025-03-26] MEDS: MULTIVITAMINS, THERA 1 EACH TAB PO SCH (17:51)
[2025-03-26] MEDS: MIRTAZAPINE 15 MG TAB PO SCH (21:51)
[2025-03-26] MEDS: TOPIRAMATE 15 MG PO SCH (21:51)
[2025-03-26] MEDS: PRIMIDONE 50 MG TAB PO SCH (21:51)
--- NOTE | 2025-03-27 08:01 | P.PN ---
Progress Note - Text Progress Note Date: 03/27/25 Patient is seen and examined again today. She continues pain at her back and towards her groin. She is able to lift her legs up off the bed. She has great difficulty when she tries to eat. She lives at home alone. Admits to having falls. She says that she is unable to get around has pain gl obally around her back. She has pain pain. A number of years particularly over the past year. I again talked to her about wearing a brace but she is declining use of the brace for her back. She is afebrile stable vital signs Chest has good insertion to inspiration expiration Abdomen soft nontender She is able to lift her legs up off the bed independently. She is not having pain with internal and external rotation at her hips. Thighs and calves soft nontender. She has sustained dorsiflexion plantarflexion EHL In her back she has pain with motion but there is no gross crepitus. Her parasp inals with some spasm. There are some diffuse tenderness over her mid lower back. There is no significant Imaging has been reviewed. X-rays here show evidence of compression deformity at L4. As CT scan report mentions possible fracture at L3 and L4 to her lumbar spine. I do not have the those images available right now. Assessment and plan Low back pain status post falls Compression fracture L4 with report of potential compression fracture L3 on CT at outside facility Inability to mobilize independently Declines usage of brace I think that we need more imaging of the patient's lumbar spine to fully assess if there is new fracture or healing fracture apparent and present at her lumbar spine. I see evidence of compression deformity at L4 but is difficult to determine the chronicity of the fracture given patient's history it is difficult to correlate with the mention of L3 vertebra prior reports from outside facility. I think that further imaging would help us in terms of treatment modalities whether it be continued conservative care, the possibly of interventional pain management, and the possibly of surgical intervention. I discussed possibly of kyphoplasty with the patient at the fractures as they are new. She understands that these are not encompassing all of the issues at her lumbar spine but could help treat a subacute or acute fracture. Will have further information based on the imaging studies will have further recommendations to follow. Is okay for her to try to mobilize to the bathroom and to try to transfer to the bathroom with assistance. She is okay to weight-bear as tolerated. Will continue to follow closely.
[2025-03-27] MEDS: ENOXAPARIN 30 MG/0.3 ML SYRINGE SQ SCH (08:46)
[2025-03-27 12:45] VITALS: BMI 16.5
--- NOTE | 2025-03-27 18:12 | P.PN ---
Progress Note - Text Progress Note Date: 03/27/25 Chief Complaint: Fall Pleasant 84-year-old patient, follows with Dr. Ana Paula Pérez. Chronic medical conditions include asthma, GERD, hard of hearing, hypertension, osteoarthritis, chronic pruritus for which she follows with dermatology, hiatal hernia, IBS, scoliosis, osteoporosis tremor of the left hand. Anxiety depression. Lives by self. Patient was transferred to the ER from [facility]. She does have a previous T12 kyphoplasty in September 2021. Recently had a fall. At least x 2. Having increasing pain in the lumbar area in the neck area. She has had difficulty wearing her TLSO bracing in the past. Decreased appetite. No respiratory symptoms. March 27: Still having pain in the lower back. Seen by Dr. Schwartz from orthopedics. MRI ordered. Surgical intervention not ruled out. Did talk at length with the patient about looking at possible assisted living and more help at home versus moving with somebody. Social work is on the case. Active Medications Acetaminophen (Acetaminophen Tab 500 Mg Tab) 500 mg PO Q6HR PRN PRN Reason: Fever and/ or Pain Albuterol Sulfate (Albuterol Nebulized 2.5 Mg/3 Ml) 2.5 mg INHALATION RT-QID PRN PRN Reason: Shortness Of Breath Alprazolam (Alprazolam 0.25 Mg Tab) 0.25 mg PO DAILY PRN PRN Reason: Anxiety Amiodarone HCl (Amiodarone 100 Mg Tab) 100 mg PO DAILY [facility] Last Admin: 03/27/25 08:47 Dose: 100 mg Betamethasone Dipropionate (Betamethasone Dipropionate 0.05% Ointment 45 Gm Tube) 1 applic TOPICAL Q3D PRN PRN Reason: Skin Irritation Budesonide/Formoterol Fumarate (Symbicort 160-4.5 Mcg Inhaler) 2 puff INHALATION RT-BID [facility] Last Admin: 03/27/25 08:44 Dose: Not Given Diphenhydramine HCl (Diphenhydramine 25 Mg Cap) 25 mg PO TID PRN PRN Reason: Itching Last Admin: 03/26/25 22:13 Dose: 25 mg Enoxaparin Sodium (Enoxaparin 30 Mg/0.3 Ml Syringe) 30 mg SQ DAILY [facility] Last Admin: 03/27/25 08:46 Dose: 30 mg Hydromorphone HCl (Hydromorphone 1 Mg/Ml 1 Ml Syringe) 1 mg IVP Q4HR PRN PRN Reason: Pain Last Admin: 03/27/25 11:34 Dose: 1 mg Sodium Chloride (Saline 0.9%) 1,000 mls @ 50 mls/hr IV .Q20H [facility] Last Admin: 03/27/25 14:42 Dose: Not Given Levothyroxine Sodium (Levothyroxine 75 Mcg Tab) 75 mcg PO DAILY@0630 [facility] Last Admin: 03/27/25 06:48 Dose: 75 mcg Lidocaine (Lidocaine 4% Patch) 1 patch TOPICAL DAILY [facility]; Protocol Last Admin: 03/27/25 14:42 Dose: Not Given Metoprolol Succinate (Metoprolol Succinate (Er) 50 Mg Tab.Er.24h) 50 mg PO BID [facility] Last Admin: 03/27/25 08:46 Dose: 50 mg Mirtazapine (Mirtazapine 15 Mg Tab) 15 mg PO [facility] Last Admin: 03/26/25 21:51 Dose: 15 mg Multivitamins (Multivitamins, Thera 1 Each Tab) 1 each PO DAILY [facility] Last Admin: 03/27/25 08:46 Dose: 1 each Naloxone HCl (Naloxone 0.4 Mg/Ml 1 Ml Vial) 0.2 mg IV Q2M PRN PRN Reason: Opioid Reversal Non-Formulary Medication (Topiramate [Topiramate (Sprinkle)]) 30 mg PO HS [facility] Last Admin: 03/26/25 21:51 Dose: Not Given Ondansetron HCl (Ondansetron 4 Mg/2 Ml Vial) 4 mg IVP Q8HR PRN PRN Reason: Nausea And Vomiting Pantoprazole Sodium (Pantoprazole 40 Mg Tablet) 40 mg PO DAILY [facility] Last Admin: 03/27/25 08:46 Dose: 40 mg Primidone (Primidone 50 Mg Tab) 50 mg PO HS [facility] Last Admin: 03/26/25 21:51 Dose: 50 mg Sacubitril/Valsartan (Sacubitril/Valsartan 49 Mg-51 Mg Tablet) 1 each PO BID [facility] Last Admin: 03/27/25 08:46 Dose: 1 each Simethicone (Simethicone 80 Mg Chewable) 160 mg PO QID PRN PRN Reason: GI Upset Social history: No smoking. No alcohol. Lives alone Physical examination: VITAL SIGNS: 98.5, 61, 20, 129 x 72, 95% room air GENERAL: [BMI 16.5, thin built laying in bed a bit tearful EYES: [Pupils equal. Conjunctiva brain l. HEENT: External appearance of nose and ears normal, oral cavity grossly normal. Decreased hearing NECK: JVD not raised; masses not palpable. HEART: First and second heart sounds are normal; no edema. LUNGS: Respiratory rate normal; clear to auscultation. ABDOMEN: Soft, nontender, liver spleen not palpable, no masses palpable. PSYCH: Alert and oriented x3; mood and affect a bit low MUSCULOSKELETAL:No Clubbing/cyanosis;muscles-grossly intact. Prominent bones. Loss of muscle mass subcutaneous fat. OA in multiple joints. Pain on movement of lower back. INVESTIGATIONS, reviewed in the clinical context: TSH 4.7 March 26, 2025: White count 7.3 hemoglobin 11.5 platelets 209 sodium 130 potassium 4.2 BUN 26 creatinine 1.42 glucose [address]: No acute fracture cervical spine. Grade 1 anterolisthesis C3 on C4. Outside facility reported compression fracture deformities L4 Assessment plan: - L4 superior endplate compression fracture deformity., Causing acute lumbar pain. Precipitated by fall recently Possibility of fracture injury to surrounding area. Seen by Dr. Schwartz from orthopedics. MRI spine ordered Pain control. Surgical intervention not ruled out - History of T12 kyphoplasty September 2021 - Lumbar spondylolisthesis, DJD, scoliosis, including cervical spine. No acute fracture Pain control. Orthopedics consulted Consult PT OT - Hypothyroid Synthroid 75 mcg a day. TSH 4.7 - Chronic left arm tremors Mysoline - Moderate persistent asthma Breo Ellipta albuterol as needed - Chronic insomnia Remeron - GERD Prilosec - Anxiety Xanax as needed - Severe protein calorie malnutrition decreased oral intake Consult dietitian. Ensure Discussed events with the patient. Pending MRI. 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 IBS. "KIDNEY TURNED WRONG WAY," HX SL ABN RFP. LT HUMERUS FX, IN SPLINT/SLING; ? SYNCOPAL EPISODE W/ HX FALL 6 WKS AGO; FELT A SNAP IN ARM 09/16/18. SCOLIOSIS, OSTEOPOROSIS. PSORIASIS-LIKE COND, PATCHES ON ARMS. TREMORS LT HAND. VARICOSE VEINS. POS EDEMA ANKLES. HAD STEROID RX IN PAST MONTH FOR COUGH. History of Any Multi-Drug Resistant Organisms: None Reported Past Surgical History: Cholecystectomy, Heart Catheterization Additional Past Surgical History / Comment(s): LEFT ARM FX WITH MARISELA, CATARACTS WITH LENS IMPLANTS Past Anesthesia/Blood Transfusion Reactions: No Reported Reaction, Postoperative Nausea & Vomiting (PONV) Past Psychological History: Anxiety, Depression Additional Psychological History / Comment(s): LIVES ALONE. Smoking Status: Former smoker Past Alcohol Use History: None Reported Additional Past Alcohol Use History / Comment(s): SMOKED SOCIALLY, QUIT IN HER 20'S. Past Drug Use History: None Reported
[2025-03-28] MEDS: SIMETHICONE 80 MG CHEWABLE PO PRN (04:02)
--- NOTE | 2025-03-28 15:05 | MR ---
EXAMINATION TYPE: MR lumbar spine wo con DATE OF EXAM: 03/28/2025 COMPARISON: Outside CT lumbar spine March 25, 2025. Lumbar spine x-ray March 20, 2025 HISTORY: Lumbar fracture after fall injury TECHNIQUE: Multiplanar, multisequence imaging of the lumbar spine is performed without IV contrast. FINDINGS: Sagittal images of the lumbar spine show low signal from vertebroplasty at moderate to vishnu re chronic compression type fracture at T12 level. There is some height loss involving superior L3 an d L4 endplates redemonstrated. Mild linear diminished T1 and increased T2 signal involving the superi or L3 endplate. Corresponding to recent CT there is linear separation with some surrounding T2 hyperi ntensity involving the L1 vertebra from anterior to posterior vertebral body margin. Slight grade 1 a nterolisthesis L4 on L5 redemonstrated. Multilevel disc desiccation is present. Persistent moderate t o severe disc space narrowing at L4-L5 and L5-S1 levels. Slight grade 1 anterolisthesis L4 on L5. The conus medullaris is normal in position and signal ending at mid L1 level. Axial images show broad disc bulge with moderate size left broad-based foraminal disc protrusion at L 4-L5 level along with moderate facet arthropathy and ligamentum flavum hypertrophy causing most promi nent spinal canal effacement or stenosis at this level. There is multilevel facet arthropathy is prom inent in the mid to lower lumbar spine. IMPRESSION: Acute slightly displaced fracture of the superior portion of the L1 vertebra running from anterior to posterior vertebral body margin is redemonstrated. Alignment is satisfactory without pos terior bony retropulsion. MRI is suggestive of a second nondisplaced fracture involving the L3 verteb ra as detailed above without corresponding abnormality seen on recent outside CT. [facility], , 03/28/2025 3:03 PM
--- NOTE | 2025-03-28 15:21 | P.PN ---
Progress Note - Text Progress Note Date: 03/28/25 Orthopedic spine: History of present illness: Patient is a pleasant 84-year-old female who is seen examined at bedside for follow-up evaluation of her lumbar spine. We were consulted by medicine after previous imaging showed evidence of compression fracture deformity at L4. She does have a history of previous T12 kyphoplasty with biopsy performed on 10/06/2021. She recently sustained a fall. She states she has fallen twice. She does have increased low back pain since that time. She did have difficulty with TLSO bracing in the past. She is admitted to medicine and is being seen by medicine. Her medical history includes hypertension, COPD, and upper extremity tremor. She admits to right hip fracture in September 2019 for undergoing surgical intervention at [facility]. Today she states she has significant pain and is crying at the bedside. She has lumbar pain that radiates towards her right hip. She is also complaining of bilateral groin pain. She is currently scheduled for lumbar MRI imaging to be performed this afternoon. She states again at the bedside she does not wish for any sort of bracing for her lumbar spine.. Physical exam: Patient is awake, alert, and oriented 3 Vital signs stable Good chest excursion with deep inspiration and expiration Abdomen soft nontender Examination of lumbar spine reveals skin is intact with no abrasions, lacerations, or bruises; no erythema, purulence or signs of infection Pain with palpation along the midline of the lumbar spine Dorsiflexion, plantarflexion, and extensor hallucis longus positive sustained bilaterally Lower extremity strength 5/5 bilaterally No lower extremity hyperreflexia bilaterally Straight leg test negative bilateral lower extremities No signs or symptoms of DVT; no calf pain No pain with internal and external rotation of the hips bilaterally Neurovascularly intact Pertinent studies: X-ray of the pelvis taken 03/20/2025: Evidence of right total hip arthroplasty which hardware appears to be in good alignment good position; left hip osteoarthritis; no fracture or dislocation within the pelvis X-rays of the lumbosacral spine taken on 03/20/2025: Evidence of previous ky phoplasty at T12; degenerative scoliosis; L4 superior endplate compression fracture deformity with approximately 50% height loss; L4-5 severe asymmetric degenerative disc disease, lateral listhesis and slight spondylolisthesis; L5-S1 end-stage degenerative disc disease and slight spondylolisthesis; lower anterior osteophytic spurring CT of the head and cervical spine taken on 03/25/2025: C3-7 end-stage degenerative disc disease; L3-4 spondylolisthesis; L4-5 significant spondylolisthesis; significant spondylosis; no obvious fracture Assessment: L4 superior endplate compression fracture deformity History of T12 kyphoplasty Low back pain L4-5 and L5-S1 spondylolisthesis L4-5 asymmetric degenerative disc disease and lateral listhesis Degenerative scoliosis Lumbar and lumbosacral degenerative disc disease Lumbar osteophytic spurring C3-7 severe degenerative disc disease C3-4 and C4-5 spondylolisthesis History of right hip hemiarthroplasty Upper extremity tremor COPD Hypertension Plan: 1. Maral has sustained multiple falls. She does have increased back pain since that time. Reviewing of imaging shows evidence of L4 superior endplate compression fracture deformity. She has a history of T12 kyphoplasty with biopsy performed on 10/06/2021. She states she has had difficulty with TLSO bracing in the past. We again did discuss she would be a candidate for an LSO brace with the possibility of surgical intervention at L4. She again declines bracing. She states she does not want bracing. She is scheduled for lumbar MRI imaging this afternoon. Currently, she is n.p.o. We will plan to review her lumbar MRI imaging, and if her fracture is acute in nature and she would like to proceed for surgical intervention, we could plan for L4 kyphoplasty with biopsy today, 03/28/2025. She will remain n.p.o. until MRI imaging is reviewed and patient is seen for follow-up evaluation to discuss this possible plan of care. Patient should avoid bending, twisting, lifting. No lifting greater than 10 pounds. She should avoid physical therapy activities. 2. Patient will continue to be seen examined by medicine for her other medical diagnoses. The patient is seen and examined as above earlier today. Since she was seen earlier, her MRI was completed and I was able to review the imaging and the report itself. The imaging shows a new fracture at L1 and a active fracture at L3 as well. I do not see any new signal at L4. She does have other changes including a listhesis at L5 4 5 and multiple degenerative changes. I think the patient's significant symptoms stem from her new fractures at L1 and L3. She is declining any brace use as she has tried them in the past without any relief. She continues to have severe pain and I think that she could have some benefit with surgical kyphoplasty at L1 and L3. I will discuss the possibility of kyphoplasty with her today we could proceed with surgery this afternoon if she is able. I will discussed the risk complications alternatives and benefits at length.
--- NOTE | 2025-03-28 17:24 | P.PN ---
Progress Note - Text Progress Note Date: 03/28/25 Chief Complaint: Fall Pleasant 84-year-old patient, follows with Dr. Ana Paula Pérez. Chronic medical conditions include asthma, GERD, hard of hearing, hypertension, osteoarthritis, chronic pruritus for which she follows with dermatology, hiatal hernia, IBS, scoliosis, osteoporosis tremor of the left hand. Anxiety depression. Lives by self. Patient was transferred to the ER from [facility]. She does have a previous T12 kyphoplasty in September 2021. Recently had a fall. At least x 2. Having increasing pain in the lumbar area in the neck area. She has had difficulty wearing her TLSO bracing in the past. Decreased appetite. No respiratory symptoms. March 27: Still having pain in the lower back. Seen by Dr. Schwartz from orthopedics. MRI ordered. Surgical intervention not ruled out. Did talk at length with the patient about looking at possible assisted living and more help at home versus moving with somebody. Social work is on the case. March 28: Patient seen this morning. In bed. Lumbar MRI showing slightly displaced fracture of the superior portion of L1 vertebra. Also second nondisplaced fracture involving L3 vertebra. Other findings. Dr. Schwartz from orthopedic spine spoke to me. Will be taking the patient for surgery. Given the patient's age she is a moderate cardiopulmonary risk for surgery. With no contraindications. Denies any active cardiac or pulmonary symptoms. Social history: No smoking. No alcohol. Lives alone Physical examination: VITAL SIGNS: 97.4, 61, 15, 146/75, 96% room air GENERAL: [BMI 16.5, thin built laying in bed a bit tearful EYES: [Pupils equal. Conjunctiva brain l. HEENT: External appearance of nose and ears normal, oral cavity grossly normal. Decreased hearing NECK: JVD not raised; masses not palpable. HEART: First and second heart sounds are normal; no edema. LUNGS: Respiratory rate normal; clear to auscultation. ABDOMEN: Soft, nontender, liver spleen not palpable, no masses palpable. PSYCH: Alert and oriented x3; mood and affect a bit low MUSCULOSKELETAL:No Clubbing/cyanosis;muscles-grossly intact. Prominent bones. Loss of muscle mass subcutaneous fat. OA in multiple joints. Pain on movement of lower back. INVESTIGATIONS, reviewed in the clinical context: Lumbar spine MRI without contrast [March 28] L1 vertebra fracture, L3 vertebral fracture. Other findings. Including chronic compressions TSH 4.7 March 26, 2025: White count 7.3 hemoglobin 11.5 platelets 209 sodium 130 potassium 4.2 BUN 26 creatinine 1.42 glucose [address]: No acute fracture cervical spine. Grade 1 anterolisthesis C3 on C4. Outside facility reported compression fracture deformities L4 Assessment plan: -Acute on chronic lumbar vertebra fractures at multiple levels. MRI on this admission. Patient will be taken to surgery by Dr. Schwartz today. Moderate cardio pulmonary perioperative risk. No absolute contraindications. - History of T12 kyphoplasty September 2021 - Lumbar spondylolisthesis, DJD, scoliosis, including cervical spine. No acute fracture Pain control. Orthopedics following Consult PT OT - Hypothyroid Synthroid 75 mcg a day. TSH 4.7 - Chronic left arm tremors Mysoline - Moderate persistent asthma Breo Ellipta albuterol as needed - Chronic insomnia Remeron - GERD Prilosec - Anxiety Xanax as needed - Severe protein calorie malnutrition decreased oral intake Consult dietitian. Ensure Patient will be going in for surgery later today. 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 IBS. "KIDNEY TURNED WRONG WAY," HX SL ABN RFP. LT HUMERUS FX, IN SPLINT/SLING; ? SYNCOPAL EPISODE W/ HX FALL 6 WKS AGO; FELT A SNAP IN ARM 09/16/18. SCOLIOSIS, OSTEOPOROSIS. PSORIASIS-LIKE COND, PATCHES ON ARMS. TREMORS LT HAND. VARICOSE VEINS. POS EDEMA ANKLES. HAD STEROID RX IN PAST MONTH FOR COUGH. History of Any Multi-Drug Resistant Organisms: None Reported Past Surgical History: Cholecystectomy, Heart Catheterization Additional Past Surgical History / Comment(s): LEFT ARM FX WITH MARISELA, CATARACTS WITH LENS IMPLANTS Past Anesthesia/Blood Transfusion Reactions: No Reported Reaction, Postoperative Nausea & Vomiting (PONV) Past Psychological History: Anxiety, Depression Additional Psychological History / Comment(s): LIVES ALONE. Smoking Status: Former smoker Past Alcohol Use History: None Reported Additional Past Alcohol Use History / Comment(s): SMOKED SOCIALLY, QUIT IN HER 20'S. Past Drug Use History: None Reported
[2025-03-28] MEDS ORDERED: fentaNYL (PF) 50 MCG/ML 2 ML AMP ONE (20:16)
[2025-03-28] MEDS ORDERED: PROPOFOL 10 MG/ML 20 ML VIAL IV ONE (20:16)
[2025-03-28] MEDS ORDERED: LIDOCAINE 1% INJ 10MG/ML (20 ML MDV) ONE (20:16)
[2025-03-28] MEDS ORDERED: SUCCINYLCHOLINE CHLORIDE 200 MG/10 ML VIAL IV ONE (20:16)
[2025-03-28] MEDS: LACTATED RINGERS 1,000 ML IV ONE (20:19)
[2025-03-28] MEDS: SODIUM CHLORIDE 0.9% 50 ML with ceFAZolin 2,000 MG IV ONE (20:19)
[2025-03-28] MEDS: BUPIVACAINE (PF) 0.25% 30 ML VIAL SQ ONE ×2 (20:35)
[2025-03-28] MEDS: LIDOCAINE 2%-EPI 1:100,000 20 ML VIAL SQ ONE ×2 (20:36)
[2025-03-28] MEDS: IOPAMIDOL M200 10 ML VIAL MISCELLANE ONE (20:58)
[2025-03-28] MEDS: SODIUM CHLORIDE 0.9% 1,000 ML IV SCH (21:00)
[2025-03-28] MEDS ORDERED: BENZOCAINE/MENTHOL LOZENG 1 EACH LOZENGE MUCOUS MEM PRN (21:31)
[2025-03-28] MEDS ORDERED: traMADol 50 MG TAB PO PRN (21:31)
--- NOTE | 2025-03-28 21:37 | P.OP ---
Date of Procedure: 03/28/25 Preoperative Diagnosis: Acute L1 and L3 compression fractures, traumatic status post fall Incapacitating low back pain Postoperative Diagnosis: Same Anesthesia: GETA Pathology: other (L1 and L3 vertebral body biopsies to pathology) Condition: stable Disposition: PACU Description of Procedure: BRIEF OPERATIVE NOTE Preoperative Diagnosis: Acute L1 and L3 compression fractures, traumatic status post fall Incapacitating low back pain Postoperative Diagnosis: Same Procedure: Kyphoplasty of L1 and L3 Vertebral body biopsy L1 and L3 Use of biplanar fluoroscopic guidance Surgeon: Dr. Schwartz Sagger Filler: engineering assistant Anesthesia: General anesthesia per Dr. Sam Estimated blood loss: Less than 10 mL Specimen: Vertebral body biopsy sent to pathology in formalin separately L1 and L3 Complications: None apparent Components implanted: Bone cement approximately 6 cc per vertebral body Disposition: To recovery room in good stable condition. OPERATIVE INDICATIONS The patient has been having issues in their back ever since sustaining an injury. She had a history of a hip fracture and over the past year has been having significant pain globally. She has had worsening pain in her low back and sustained a fall where she had significant excruciating pain in her back. She had been having difficulty with her mobilization and ambulation and had to present to the hospital. In the past she has had a compression fracture of T12 which was treated with kyphoplasty and she was happy with that result. She had failed conservative management and hated wearing her brace. We offered number of different treatment options for her new fractures and the patient decided to proceed with vertebral kyphoplasty at L1 and L3. Her imaging showed new fractures at those levels which correlated well with her low back pain. She was having excruciating pain and was unable to get up on her own and was requiring maximum assist just to [facility]. She was not having any new leg issues. She is not having any weakness in her lower extremities. She is not having any changes in bowel bladder function. The patient has been through conservative treatment. They attempted conservative care with bracing however they're not having any benefit despite brace use. They continue to have significant pain and debility due to their fracture. We discussed various treatment options including surgery, and the patient wishes to proceed with surgery We discussed the risk, patient's alternatives and benefits of surgery including but not limited to, risk of bleeding risk of infection, risk of need for further surgery, risk of decreased, loss of motion, loss of function, cement extravasation, nerve damage, paralysis, heart attack, blindness and . OPERATIVE SUMMARY After discussing all the risks, patient alternatives and benefits at length, the patient elected to proceed with surgical intervention, signed informed consent, and presented for their procedure. The patient was seen and examined in the preoperative holding area and the surgical site was marked. The patient was given antibiotics and brought to the operating room. The patient was sedated and intubated by anesthesia in standard fashion. The patient was positioned on to the operating room table in a prone position on the appropriate well-padded and well molded bilateral chest rolls. We were careful to pad any bony prominences and pressure points. We were careful to maintain the patient's cervical spine and good neutral alignment and position throughout. We used 2 C-arm machines to establish biplanar fluoroscopic guidance in AP and lateral positions. We were able to localize the fractures appropriately at L1 and L3. The patient was prepped and draped in a normal standard fashion. An appropriate timeout and keystone protocol performed. We were able to proceed with the surgery. The local wound area was infiltrated with local anesthetic. An incision was made over the lateral aspect of the pedicle over the appropriate levels with a small 2 mm stab incision bilaterally at L1 and L3. Intraoperative fluoroscopy was taken which showed a marker at the appropriate level. With the appropriate level positively confirmed, I was able to position a sharp trocar over the lateral aspect of the pedicle. As able to advance the trocar into the pedicle and into the posterior aspect of vertebral body being careful to avoid penetration cephalad caudad or medially. The trocar was placed appropriately into the posterior aspect of vertebral body at the appropriate levels bilaterally at L1 and L3. This was confirmed with C-arm guidance. With the trocar intact I was then able to take a bone biopsy with a biopsy punch or a bony drill. The biopsy specimen was passed off to be sent to pathology in formalin. The biopsies were sent from L1 and L3 separately to pathology I was then able to place the kyphoplasty balloon within the vertebral body. The position was checked on C-arm. I was able to inflate the balloon under low pressure and visualization with C-arm. The balloon was well enclosed within the vertebral body. The cement was prepared. The bones were noted to be quite soft. With the cement at appropriate working condition the balloons were deflated and removed. I was able to place bony cement with trocar with the cement delivery device under low pressure. It had good fill within the vertebral body. I was happy with the bilateral fill throughout the vertebral bodies of L1 and L3. There is no evidence of any extravasation of the cement posteriorly toward the canal. The cement was well contained at the appropriate levels. The cement was allowed to cure appropriately. The trochars removed and final images were taken on C-arm. This showed the cement at the appropriate levels of L1 and L3. We were able to proceed with closure. The wound was cleaned and dried and dressed with the appropriate dressing. The drapes were broken down. The patient was gently rolled back onto their hospital bed being careful to maintain their cervical spine and good neutral alignment and position. They were woken up by anesthesia, extubated, and brought to the recovery room in good stable condition. The patient will be admitted to the hospital for observation and for appropriate postoperative care, medical management and monitoring. We will continue to follow them closely about the postoperative course.
--- NOTE | 2025-03-28 22:08 | FL ---
EXAMINATION TYPE: FL guidance operating room, XR lumbar spine 2 or 3V DATE OF EXAM: 03/28/2025 9:38 PM COMPARISON: Pre Operative Images if available both CT/MRI or plain film CLINICAL INDICATION: Female, 84 years old with history of KYPHO L1 L3; TECHNIQUE: FL guidance operating room, XR lumbar spine 2 or 3V, multiple fluoroscopic images provided for procedure. DAP: 10.5336 mGym2 Gycm2 uGym2 cGycm2 or equivalent. FINDINGS: Fluoroscopic images during vertebral plasty. No immediate complication identified. IMPRESSION: 1. No evidence for intraoperative complication. 2. Please see the operative/procedural note for further details. [facility], , 03/28/2025 10:06 PM
[2025-03-29 05:15] LABS: Basophils # (A) 0.03 10*3/uL (0.00-0.10); Basophils % (A) 0.3 %; Eosinophils # (A) 0.36 10*3/uL (0.04-0.35); Eosinophils % (A) 4.0 %; HCT 33.0 % (37.2-46.3); HGB 10.9 g/dL (12.0-15.0); Lymphocytes # (A) 0.69 10*3/uL (0.90-5.00); Lymphocytes % (A) 7.6 %; MCH 31.9 pg (27.0-32.0); MCHC 33.0 g/dL (32.0-37.0); MCV 96.5 fL (80.0-97.0); Monocytes # (A) 1.34 10*3/uL (0.20-1.00); Monocytes % (A) 14.8 %; Neutrophils # (A) 6.55 10*3/uL (1.80-7.70); Neutrophils % (A) 72.6 %; Platelet Count 213 10*3/uL (140-440); RBC 3.42 10*6/uL (4.10-5.20); RDW 13.9 % (11.5-14.5); WBC 9.03 10*3/uL (4.50-10.00)
[2025-03-29 05:47] LABS: African American GFR (CKD) 60 (>60 ml/min/1.73 sqM); Anion Gap 8 mmol/L; Blood Urea Nitrogen 16 mg/dL (7-17); Calcium 8.9 mg/dL (8.4-10.2); Carbon Dioxide 22 mmol/L (22-30); Chloride 102 mmol/L (98-107); Glucose 92 mg/dL (74-99); Non-African American GFR(CKD) 52 (>60 ml/min/1.73 sqM); Potassium 4.3 mmol/L (3.5-5.1); Sodium 132 mmol/L (137-145)
--- NOTE | 2025-03-29 09:30 | P.PN ---
Progress Note - Text Progress Note Date: 03/29/25 Orthopedic spine: History of present illness: Patient is a pleasant 84-year-old female who is seen examined at bedside for follow-up evaluation of her lumbar spine. We were consulted by medicine after previous imaging showed evidence of compression fracture deformity at L4. She does have a history of previous T12 kyphoplasty with biopsy performed on 10/06/2021. She recently sustained a fall. She states she has fallen twice. She does have increased low back pain since that time. She did have difficulty with TLSO bracing in the past. Imaging performed yesterday showed evidence of acute fractures at L1 and L3. L4 was a chronic fracture. She underwent L1 and L3 kyphoplasty with biopsy yesterday, 03/28/2025. Since that time she feels her pain has improved. She continues to have some lumbar pain but feels the pain radiating towards her hip and into the groin has already improved postoperatively. She is currently happy with her progress postoperatively. For discharge to a rehabilitation facility as she does not feel like she could mobilize at home independently. She is admitted to medicine and is being seen by medicine. Her medical history includes hypertension, COPD, and upper extremity tremor. She admits to right hip fracture in September 2019 for undergoing surgical intervention at [facility]. Physical exam: Post-op Day #1 Patient is awake, alert, and oriented 3 Vital signs stable Good chest excursion with deep inspiration and expiration Incision sites at L1 are clean, dry, and intact Incision sites at L3 have some blood with dressings intact without significant active drainage Examination of lumbar spine reveals skin is intact with no abrasions, lacerations, or bruises; no erythema, purulence or signs of infection No pain with palpation along the midline of the lumbar spine Dorsiflexion, plantarflexion, and extensor hallucis longus positive sustained bilaterally Lower extremity strength 5/5 bilaterally No lower extremity hyperreflexia bilaterally No signs or symptoms of DVT; no calf pain No pain with internal and external rotation of the hips bilaterally Neurovascularly intact Pertinent studies: MRI of the lumbar spine taken on 03/28/2025: Evidence of acute fractures of L1 and L3; L4 chronic compression fracture deformity; L4-5 spondylolisthesis; previous T12 kyphoplasty; L4-5 and L5-S1 nerve disc disease X-ray of the pelvis taken 03/20/2025: Evidence of right total hip arthroplasty which hardware appears to be in good alignment good position; left hip osteoarthritis; no fracture or dislocation within the pelvis X-rays of the lumbosacral spine taken on 03/20/2025: Evidence of previous kyphoplasty at T12; degenerative scoliosis; L4 superior endplate compression fracture deformity with approximately 50% height loss; L4-5 severe asymmetric degenerative disc disease, lateral listhesis and slight spondylolisthesis; L5-S1 end-stage degenerative disc disease and slight spondylolisthesis; lower anterior osteophytic spurring CT of the head and cervical spine taken on 03/25/2025: C3-7 end-stage degenerative disc disease; L3-4 spondylolisthesis; L4-5 significant spondylolisthesis; significant spondylosis; no obvious fracture Assessment: Status post L1 and L3 kyphoplasty with biopsy L4 chronic superior endplate compression fracture deformity History of T12 kyphoplasty Low back pain L4-5 and L5-S1 spondylolisthesis L4-5 asymmetric degenerative disc disease and lateral listhesis Degenerative scoliosis Lumbar and lumbosacral degenerative disc disease Lumbar osteophytic spurring C3-7 severe degenerative disc disease C3-4 and C4-5 spondylolisthesis History of right hip hemiarthroplasty Upper extremity tremor COPD Hypertension Plan: 1. Maral has sustained multiple falls. She does have increased back pain since that time. Reviewing of imaging shows evidence of L4 superior endplate compression fracture deformity. She has a history of T12 kyphoplasty with biopsy performed on 10/06/2021. Lumbar MRI imaging showed evidence of compression fracture deformities of L1 and L3 that were acute. Chronic compression fracture deformity of L4. She underwent L1 and L3 kyphoplasty with biopsy yesterday, 03/28/2025. She has had improvement of her pain postoperatively. She is encouraged to work with physical therapy and increase her mobilization and ambulation. She does not require bracing. She should avoid excessive bending, twisting, lifting activities. A prescription has been written for hydrocodone 5 mg / 325 mg, 1 tab, every 8 hours, as needed for acute pain, dispense #21. Prescription is printed, signed, and placed in the patient's chart for discharge to a rehabilitation facility. 2. Consultation has been placed to physical therapy to increase her mobilization and ambulation 3. Consultation has been placed for case management for discharge planning; patient plans to be discharged to a rehabilitation facility. 4. Continue be seen and examined by medicine for her other medical diagnoses 5. From an orthopedic spine standpoint, patient is cleared for discharge. Patient may follow-up with Asaf Trejo PA-C or Dr. Berny Schwartz at [facility] in 2-3 weeks following discharge.
[2025-03-29] MEDS: HYDROmorphone 0.5 MG/0.5 ML SYRINGE IVP PRN (10:06)
--- NOTE | 2025-03-29 17:41 | P.PN ---
Progress Note - Text Progress Note Date: 03/29/25 Chief Complaint: Fall Pleasant 84-year-old patient, follows with Dr. Ana Paula Pérez. Chronic medical conditions include asthma, GERD, hard of hearing, hypertension, osteoarthritis, chronic pruritus for which she follows with dermatology, hiatal hernia, IBS, scoliosis, osteoporosis tremor of the left hand. Anxiety depression. Lives by self. Patient was transferred to the ER from [facility]. She does have a previous T12 kyphoplasty in September 2021. Recently had a fall. At least x 2. Having increasing pain in the lumbar area in the neck area. She has had difficulty wearing her TLSO bracing in the past. Decreased appetite. No respiratory symptoms. March 27: Still having pain in the lower back. Seen by Dr. Schwartz from orthopedics. MRI ordered. Surgical intervention not ruled out. Did talk at length with the patient about looking at possible assisted living and more help at home versus moving with somebody. Social work is on the case. March 28: Patient seen this morning. In bed. Lumbar MRI showing slightly displaced fracture of the superior portion of L1 vertebra. Also second nondisplaced fracture involving L3 vertebra. Other findings. Dr. Schwartz from orthopedic spine spoke to me. Will be taking the patient for surgery. Given the patient's age she is a moderate cardiopulmonary risk for surgery. With no contraindications. Denies any active cardiac or pulmonary symptoms. March 29: Yesterday evening patient underwent kyphoplasty of L1 and L3 by Dr. Schwartz. Today actually patient feels the pain is better in the back. Her brother is visiting.Patient did rather well with physical therapy and used a rolling walker to about 20 feet. Looking into patient going to rehab. Active Medications Acetaminophen (Acetaminophen Tab 500 Mg Tab) 500 mg PO Q6HR PRN PRN Reason: Fever and/ or Pain Hydrocodone Bitart/Acetaminophen (Hydrocodone/Apap 5-325mg 1 Each Tab) 1 each PO Q4HR PRN PRN Reason: Pain Albuterol Sulfate (Albuterol Nebulized 2.5 Mg/3 Ml) 2.5 mg INHALATION RT-QID PRN PRN Reason: Shortness Of Breath Alprazolam (Alprazolam 0.25 Mg Tab) 0.25 mg PO DAILY PRN PRN Reason: Anxiety Amiodarone HCl (Amiodarone 100 Mg Tab) 100 mg PO DAILY [facility] Last Admin: 03/29/25 11:15 Dose: 100 mg Benzocaine/Menthol (Benzocaine/Menthol Lozeng 1 Each Lozenge) 1 each MUCOUS MEM Q4HR PRN PRN Reason: Sore Throat Betamethasone Dipropionate (Betamethasone Dipropionate 0.05% Ointment 45 Gm Tube) 1 applic TOPICAL Q3D PRN PRN Reason: Skin Irritation Budesonide/Formoterol Fumarate (Symbicort 160-4.5 Mcg Inhaler) 2 puff INHALATION RT-BID [facility] Last Admin: 03/29/25 09:35 Dose: Not Given Diphenhydramine HCl (Diphenhydramine 25 Mg Cap) 25 mg PO TID PRN PRN Reason: Itching Last Admin: 03/28/25 23:44 Dose: 25 mg Enoxaparin Sodium (Enoxaparin 30 Mg/0.3 Ml Syringe) 30 mg SQ DAILY [facility] Last Admin: 03/29/25 11:16 Dose: 30 mg Hydromorphone HCl (Hydromorphone 1 Mg/Ml 1 Ml Syringe) 1 mg IVP Q4HR PRN PRN Reason: Pain Last Admin: 03/29/25 06:29 Dose: 1 mg Hydromorphone HCl (Hydromorphone 0.5 Mg/0.5 Ml Syringe) 0.5 mg IVP Q4HR PRN PRN Reason: Pain Last Admin: 03/29/25 10:06 Dose: 0.5 mg Sodium Chloride (Saline 0.9%) 1,000 mls @ 50 mls/hr IV .Q20H [facility] Last Admin: 03/29/25 06:34 Dose: 50 mls/hr Sodium Chloride (Saline 0.9%) 1,000 mls @ 75 mls/hr IV .[id number] [facility] Last Admin: 03/28/25 21:00 Dose: Not Given Levothyroxine Sodium (Levothyroxine 75 Mcg Tab) 75 mcg PO DAILY@0630 [facility] Last Admin: 03/29/25 06:31 Dose: 75 mcg Lidocaine (Lidocaine 4% Patch) 1 patch TOPICAL DAILY [facility]; Protocol Last Admin: 03/29/25 11:23 Dose: Not Given Metoprolol Succinate (Metoprolol Succinate (Er) 50 Mg Tab.Er.24h) 50 mg PO BID [facility] Last Admin: 03/29/25 11:16 Dose: 50 mg Mirtazapine (Mirtazapine 15 Mg Tab) 15 mg PO HS [facility] Last Admin: 03/28/25 23:44 Dose: 15 mg Multivitamins (Multivitamins, Thera 1 Each Tab) 1 each PO DAILY [facility] Last Admin: 03/29/25 11:15 Dose: 1 each Naloxone HCl (Naloxone 0.4 Mg/Ml 1 Ml Vial) 0.2 mg IV Q2M PRN PRN Reason: Opioid Reversal Non-Formulary Medication (Topiramate [Topiramate (Sprinkle)]) 30 mg PO HS [facility] Last Admin: 03/29/25 02:58 Dose: Not Given Ondansetron HCl (Ondansetron 4 Mg/2 Ml Vial) 4 mg IVP Q8HR PRN PRN Reason: Nausea And Vomiting Pantoprazole Sodium (Pantoprazole 40 Mg Tablet) 40 mg PO DAILY [facility] Last Admin: 03/29/25 11:15 Dose: 40 mg Primidone (Primidone 50 Mg Tab) 50 mg PO HS [facility] Last Admin: 03/28/25 23:44 Dose: 50 mg Sacubitril/Valsartan (Sacubitril/Valsartan 49 Mg-51 Mg Tablet) 1 each PO BID [facility] Last Admin: 03/29/25 11:16 Dose: 1 each Simethicone (Simethicone 80 Mg Chewable) 160 mg PO QID PRN PRN Reason: GI Upset Last Admin: 03/28/25 10:44 Dose: 160 mg Tramadol HCl (Tramadol 50 Mg Tab) 50 mg PO Q6HR PRN PRN Reason: Pain Scale 4 - 6 Social history: No smoking. No alcohol. Lives alone Physical examination: VITAL SIGNS: 98.8, 79, 17, 135 x 75, 92% room air GENERAL: [BMI 16.5, thin built laying in bed, more cheerful today EYES: [Pupils equal. Conjunctiva brain l. HEENT: External appearance of nose and ears normal, oral cavity grossly normal. Decreased hearing NECK: JVD not raised; masses not palpable. HEART: First and second heart sounds are normal; no edema. LUNGS: Respiratory rate normal; clear to auscultation. ABDOMEN: Soft, nontender, liver spleen not palpable, no masses palpable. PSYCH: Alert and oriented x3; mood and affect a bit low MUSCULOSKELETAL:No Clubbing/cyanosis;muscles-grossly intact. Prominent bones. Loss of muscle mass subcutaneous fat. OA in multiple joints. INVESTIGATIONS, reviewed in the clinical context: March 29: White count 9.0 hemoglobin 10.9 platelets 213 potassium 4.3 creatinine 1.0 Lumbar spine MRI without contrast [March 28] L1 vertebra fracture, L3 vertebral fracture. Other findings. Including chronic compressions TSH 4.7 March 26, 2025: White count 7.3 hemoglobin 11.5 platelets 209 sodium 130 potassium 4.2 BUN 26 creatinine 1.42 glucose [address]: No acute fracture cervical spine. Grade 1 anterolisthesis C3 on C4. Outside facility reported compression fracture deformities L4 Assessment plan: -Acute L1 L3 compression fracture. MRI on this admission. Kyphoplasty on L1 L3 by Dr. Schwartz on March 28. Moderate cardio pulmonary perioperative risk. No absolute contraindications. - History of T12 kyphoplasty September 2021 - Lumbar spondylolisthesis, DJD, scoliosis, including cervical spine. No acute fracture Pain control. Orthopedics following Followed by PT OT. - Hypothyroid Synthroid 75 mcg a day. TSH 4.7 - Chronic left arm tremors Mysoline - Acute kidney injury with a creatinine peaking at 1.42. Now down to 1.0 - Moderate persistent asthma Breo Ellipta albuterol as needed - Chronic insomnia Remeron - GERD Prilosec - Anxiety Xanax as needed - Severe protein calorie malnutrition decreased oral intake Consult dietitian. Ensure Seen by PT OT. Per case meds looking to go to rehab. 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 IBS. "KIDNEY TURNED WRONG WAY," HX SL ABN RFP. LT HUMERUS FX, IN SPLINT/SLING; ? SYNCOPAL EPISODE W/ HX FALL 6 WKS AGO; FELT A SNAP IN ARM 09/16/18. SCOLIOSIS, OSTEOPOROSIS. PSORIASIS-LIKE COND, PATCHES ON ARMS. TREMORS LT HAND. VARICOSE VEINS. POS EDEMA ANKLES. HAD STEROID RX IN PAST MONTH FOR COUGH. History of Any Multi-Drug Resistant Organisms: None Reported Past Surgical History: Cholecystectomy, Heart Catheterization Additional Past Surgical History / Comment(s): LEFT ARM FX WITH MARISELA, CATARACTS WITH LENS IMPLANTS Past Anesthesia/Blood Transfusion Reactions: No Reported Reaction, Postoperative Nausea & Vomiting (PONV) Past Psychological History: Anxiety, Depression Additional Psychological History / Comment(s): LIVES ALONE. Smoking Status: Former smoker Past Alcohol Use History: None Reported Additional Past Alcohol Use History / Comment(s): SMOKED SOCIALLY, QUIT IN HER 20'S. Past Drug Use History: None Reported
[2025-03-30] MEDS: LACTULOSE 20 GM/30 ML CUP PO ONE (01:48)
[2025-03-30] MEDS: HYDROcodone/APAP 5-325MG 1 EACH TAB PO PRN (04:00)
[2025-03-30] MEDS ORDERED: SENNOSIDES-DOCUSATE SODIUM 1 EACH TAB PO PRN (08:55)
[2025-03-30] MEDS ORDERED: MAGNESIUM HYDROXIDE 2,400 MG/30 ML CUP PO PRN (08:55)
--- NOTE | 2025-03-30 09:01 | P.PN ---
Progress Note - Text Progress Note Date: 03/30/25 Orthopedic spine: History of present illness: Patient is a pleasant 84-year-old female who is seen examined at bedside for follow-up evaluation of her lumbar spine. We were consulted by medicine after previous imaging showed evidence of compression fracture deformity at L4. She does have a history of previous T12 kyphoplasty with biopsy performed on 10/06/2021. She recently sustained a fall. She states she has fallen twice. She does have increased low back pain since that time. She did have difficulty with TLSO bracing in the past. Imaging performed on 03/28/2025 showed evidence of acute fractures at L1 and L3. L4 was a chronic fracture. She underwent L1 and L3 kyphoplasty with biopsy on 03/28/2025. Since that time she feels her pain has improved. She continues to have some lumbar pain but feels the pain radiating towards her hip and into the groin has already improved postoperatively. She is currently happy with her progress postoperatively. Today she states she does have some increased pain towards the groin. She denies any new injuries. She was able to transfer to a bedside chair and to the restroom with physical therapy yesterday. For discharge to a rehabilitation facility as she does not feel like she could mobilize at home independently. She may be cleared and approved for discharge today. She is admitted to medicine and is being seen by medicine. Her medical history includes hypertension, COPD, and upper extremity tremor. She admits to right hip fracture in September 2019 for undergoing surgical intervention at [facility]. Patient states she has some abdominal discomfort but not significant pain but has not had a bowel movement recently. She also states she has not eaten much food during her admission. She states she does have some difficulty with constipation chronically. Physical exam: Post-op Day #1 Patient is awake, alert, and oriented 3 Vital signs stable Good chest excursion with deep inspiration and expiration Incision sites at L1 are clean, dry, and intact Incision sites at L3 have some blood over the left incision site with dressings intact without significant active drainage Examination of lumbar spine reveals skin is intact with no abrasions, lacerations, or bruises; no erythema, purulence or signs of infection No pain with palpation along the midline of the lumbar spine Dorsiflexion, plantarflexion, and extensor hallucis longus positive sustained bilaterally Lower extremity strength 5/5 bilaterally No lower extremity hyperreflexia bilaterally No signs or symptoms of DVT; no calf pain No pain with internal and external rotation of the hips bilaterally Neurovascularly intact Pertinent studies: MRI of the lumbar spine taken on 03/28/2025: Evidence of acute fractures of L1 and L3; L4 chronic compression fracture deformity; L4-5 spondylolisthesis; previous T12 kyphoplasty; L4-5 and L5-S1 nerve disc disease X-ray of the pelvis taken 03/20/2025: Evidence of right total hip arthroplasty which hardware appears to be in good alignment good position; left hip osteoarthritis; no fracture or dislocation within the pelvis X-rays of the lumbosacral spine taken on 03/20/2025: Evidence of previous kyphoplasty at T12; degenerative scoliosis; L4 superior endplate compression fracture deformity with approximately 50% height loss; L4-5 severe asymmetric degenerative disc disease, lateral listhesis and slight spondylolisthesis; L5-S1 end-stage degenerative disc disease and slight spondylolisthesis; lower anterior osteophytic spurring CT of the head and cervical spine taken on 03/25/2025: C3-7 end-stage degenerative disc disease; L3-4 spondylolisthesis; L4-5 significant spondylolisthesis; significant spondylosis; no obvious fracture Assessment: Status post L1 and L3 kyphoplasty with biopsy L4 chronic superior endplate compression fracture deformity History of T12 kyphoplasty Low back pain L4-5 and L5-S1 spondylolisthesis L4-5 asymmetric degenerative disc disease and lateral listhesis Degenerative scoliosis Lumbar and lumbosacral degenerative disc disease Lumbar osteophytic spurring C3-7 severe degenerative disc disease C3-4 and C4-5 spondylolisthesis History of right hip hemiarthroplasty Upper extremity tremor COPD Hypertension Plan: 1. Maral has sustained multiple falls. She does have increased back pain since that time. Reviewing of imaging shows evidence of L4 superior endplate compression fracture deformity. She has a history of T12 kyphoplasty with biopsy performed on 10/06/2021. Lumbar MRI imaging showed evidence of compression fracture deformities of L1 and L3 that were acute. Chronic compression fracture deformity of L4. She underwent L1 and L3 kyphoplasty with biopsy yesterday, 03/28/2025. She has had improvement of her pain postoperatively. She is encouraged to work with physical therapy and increase her mobilization and ambulation. She does not require bracing. She should avoid excessive keegan ding, twisting, lifting activities. A prescription has been written for hydrocodone 5 mg / 325 mg, 1 tab, every 8 hours, as needed for acute pain, dispense #21. Prescription is printed, signed, and placed in the patient's chart for discharge to a rehabilitation facility. 2. Consultation has been placed to physical therapy to increase her mobilization and ambulation 3. Consultation has been placed for case management for discharge planning; patient plans to be discharged to a rehabilitation facility. She may be approved for discharge today. 4. Continue with dressing changes as needed over the surgical incision sites at the lumbar spine at kyphoplasty sites of L1 and L3 5. Patient states she has some chronic difficulty with constipation. We will add Senokot-S, twice daily as needed for constipation and milk of magnesia or suppository as needed for constipation. Senokot-S will be prescribed at discharge to help facilitate a bowel movement in the outpatient setting while at rehab 5. Continue be seen and examined by medicine for her other medical diagnoses 6. From an orthopedic spine standpoint, patient is cleared for discharge. Patient may follow-up with Asaf Trejo PA-C or Dr. Berny Schwartz at [facility] in 2-3 weeks following discharge
[2025-03-30 09:03] VITALS: RESP 17; TEMP 97.7
[2025-03-30] MEDS: PSYLLIUM HUSK 100% 6 GM PACKET PO SCH (10:12)
[2025-03-30 10:58] VITALS: BP 164/78; PULSE 60
--- NOTE | 2025-03-30 12:00 | P.DS ---
Providers Date of admission: 03/25/25 22:11 Expected date of discharge: 03/30/25 Attending physician: Ranjit Whatley Consults: 03/25/25 22:12 Consult Physician Routine Consulting Provider: Lucila Schwartz Consult Reason/Comments: LS compression Fx Do you want consulting provider notified?: Yes Primary care physician: Ana Paula Pérez [facility] Course: Chief Complaint: Fall Pleasant 84-year-old patient, follows with Dr. Ana Paula Pérez. Chronic medical conditions include asthma, GERD, hard of hearing, hypertension, osteoarthritis, chronic pruritus for which she follows with dermatology, hiatal hernia, IBS, scoliosis, osteoporosis tremor of the left hand. Anxiety depression. Lives by self. Patient was transferred to the ER from [facility]. She does have a previous T12 kyphoplasty in September 2021. Recently had a fall. At least x 2. Having increasing pain in the lumbar area in the neck area. She has had difficulty wearing her TLSO bracing in the past. Decreased appetite. No respiratory symptoms. March 27: Still having pain in the lower back. Seen by Dr. Schwartz from orthopedics. MRI ordered. Surgical intervention not ruled out. Did talk at length with the patient about looking at possible assisted living and more help at home versus moving with somebody. Social work is on the case. March 28: Patient seen this morning. In bed. Lumbar MRI showing slightly displaced fracture of the superior portion of L1 vertebra. Also second nondisplaced fracture involving L3 vertebra. Other findings. Dr. Schwartz from orthopedic spine spoke to me. Will be taking the patient for surgery. Given the patient's age she is a moderate cardiopulmonary risk for surgery. With no contraindications. Denies any active cardiac or pulmonary symptoms. March 29: Yesterday evening patient underwent kyphoplasty of L1 and L3 by Dr. Schwartz. Today actually patient feels the pain is better in the back. Her brother is visiting.Patient did rather well with physical therapy and used a rolling walker to about 20 feet. Looking into patient going to rehab. March 30: Up in recliner. Some pain at the operative site. Going to rehab today. Oral intake encouraged. Working with PT OT. Discussion and discharge planning more than 35 minutes Social history: No smoking. No alcohol. Lives alone Physical examination: VITAL SIGNS: 97.7, 60, 17, 164/78, 97% room air GENERAL: [BMI 16.5, thin built laying in bed, more cheerful today EYES: [Pupils equal. Conjunctiva brain l. HEENT: External appearance of nose and ears normal, oral cavity grossly normal. Decreased hearing NECK: JVD not raised; masses not palpable. HEART: First and second heart sounds are normal; no edema. LUNGS: Respiratory rate normal; clear to auscultation. ABDOMEN: Soft, nontender, liver spleen not palpable, no masses palpable. PSYCH: Alert and oriented x3; mood and affect a bit low MUSCULOSKELETAL:No Clubbing/cyanosis;muscles-grossly intact. Prominent bones. Loss of muscle mass subcutaneous fat. OA in multiple joints. INVESTIGATIONS, reviewed in the clinical context: March 29: White count 9.0 hemoglobin 10.9 platelets 213 potassium 4.3 creatinine 1.0 Lumbar spine MRI without contrast [March 28] L1 vertebra fracture, L3 vertebral fracture. Other findings. Including chronic compressions TSH 4.7 March 26, 2025: White count 7.3 hemoglobin 11.5 platelets 209 sodium 130 potassium 4.2 BUN 26 creatinine 1.42 glucose [address]: No acute fracture cervical spine. Grade 1 anterolisthesis C3 on C4. Outside facility reported compression fracture deformities L4 Assessment plan: -Acute L1 L3 compression fracture. MRI on this admission. Kyphoplasty on L1 L3 by Dr. Schwartz on March 28. Moderate cardio pulmonary perioperative risk. No absolute contraindications. - History of T12 kyphoplasty September 2021 - Lumbar spondylolisthesis, DJD, scoliosis, including cervical spine. No acute fracture Pain control. Orthopedics following Followed by PT OT. - Hypothyroid Synthroid 75 mcg a day. TSH 4.7 - Chronic left arm tremors Mysoline - Acute kidney injury with a creatinine peaking at 1.42. Now down to 1.0 - Moderate persistent asthma Breo Ellipta albuterol as needed - Chronic insomnia Remeron - GERD Prilosec - Anxiety Xanax as needed - Severe protein calorie malnutrition decreased oral intake Consult dietitian. Ensure Disposition: Rehab at [facility] Past Medical History Past Medical History: Asthma, COPD, GERD/Reflux, Hearing Disorder / Deafness, Hypertension, Musculoskeletal Disorder, Neurologic Disorder, Osteoarthritis (OA), Skin Disorder Additional Past Medical History / Comment(s): HIATAL HERNIA. IBS. "KIDNEY TURNED WRONG WAY," HX SL ABN RFP. LT HUMERUS FX, IN SPLINT/SLING; ? SYNCOPAL EPISODE W/ HX FALL 6 WKS AGO; FELT A SNAP IN ARM 09/16/18. SCOLIOSIS, OSTEOPOROSIS. PSORIASIS-LIKE COND, PATCHES ON ARMS. TREMORS LT HAND. VARICOSE VEINS. POS EDEMA ANKLES. HAD STEROID RX IN PAST MONTH FOR COUGH. History of Any Multi-Drug Resistant Organisms: None Reported Past Surgical History: Cholecystectomy, Heart Catheterization Additional Past Surgical History / Comment(s): LEFT ARM FX WITH MARISELA, CATARACTS WITH LENS IMPLANTS Past Anesthesia/Blood Transfusion Reactions: No Reported Reaction, Postoperative Nausea & Vomiting (PONV) Past Psychological History: Anxiety, Depression Additional Psychological History / Comment(s): LIVES ALONE. Smoking Status: Former smoker Past Alcohol Use History: None Reported Additional Past Alcohol Use History / Comment(s): SMOKED SOCIALLY, QUIT IN HER 20'S. Past Drug Use History: None Reported Plan - Discharge Summary Discharge Rx Participant: Yes New Discharge Prescriptions: New HYDROcodone/APAP 5-325MG [[place] 5] 1 each PO Q8HR PRN #21 tab PRN Reason: Pain diphenhydrAMINE [Benadryl] 25 mg PO TID PRN cap PRN Reason: Itching Lidocaine 4% Patch 1 patch TOPICAL DAILY #3 patch Sennosides-Docusate Sodium [Senokot-S] 1 each PO BID PRN tab PRN Reason: Constipation Sennosides-Docusate Sodium [Senokot-S] 1 tab PO BID PRN #60 tablet PRN Reason: Constipation Psyllium Husk 100% [Metamucil Packet] 6 gm PO DAILY packet Continue Simethicone [Gas-X] 125 mg PO QID PRN PRN Reason: Gi Upset Omeprazole [PriLOSEC] 20 mg PO DAILY Fluticasone/Vilanterol [Breo Ellipta 200-25 Mcg Inhaler] 1 puff INHALATION RT-DAILY Primidone [Mysoline] 50 mg PO HS Sacubitril/Valsartan [Entresto 49 mg-51 mg Tablet] 1 tab PO BID Calcium 600mg+ Vitamin D(Unknown Dose) 1 tab PO DAILY Acetaminophen Tab [Tylenol] 500 mg PO Q6HR PRN PRN Reason: Fever And/ Or Pain Topiramate [Topiramate (Sprinkle)] 30 mg PO HS Fluocinonide 0.05% [Lidex 0.05% cream] 1 applic TOPICAL Q3D PRN PRN Reason: Skin Irritation ALPRAZolam [Xanax] 0.25 mg PO DAILY PRN #3 tab PRN Reason: Anxiety Metoprolol Succinate (ER) [Toprol XL] 50 mg PO BID Albuterol Sulfate [Ventolin HFA] 1 puff INHALATION RT-QID PRN PRN Reason: Shortness Of Breath Amiodarone HCl [Pacerone] 100 mg PO DAILY Fluocinonide 0.05% Solution 1 applic TOPICAL Q3D PRN PRN Reason: Scalp Irritation Multivit-Min/Iron/Folic/Lutein [Centrum Silver Women Tablet] 1 tab PO DAILY Levothyroxine Sodium [Synthroid] 75 mcg PO DAILY Mirtazapine [Remeron] 15 mg PO HS #3 tab Discontinued Loratadine [Claritin] 10 mg PO DAILY PRN PRN Reason: Allergy Symptoms Discharge Medication List Fluticasone/Vilanterol [Breo Ellipta 200-25 Mcg Inhaler] 1 puff INHALATION RT- DAILY 09/21/18 [History] Omeprazole [PriLOSEC] 20 mg PO DAILY 09/21/18 [History] Primidone [Mysoline] 50 mg PO HS 09/21/18 [History] Simethicone [Gas-X] 125 mg PO QID PRN 09/21/18 [History] Albuterol Sulfate [Ventolin HFA] 1 puff INHALATION RT-QID PRN 09/26/21 [History] Amiodarone HCl [Pacerone] 100 mg PO DAILY 09/26/21 [History] Metoprolol Succinate (ER) [Toprol XL] 50 mg PO BID 09/26/21 [History] Sacubitril/Valsartan [Entresto 49 mg-51 mg Tablet] 1 tab PO BID 09/26/21 [History] Acetaminophen Tab [Tylenol] 500 mg PO Q6HR PRN 03/26/25 [History] Calcium 600mg+ Vitamin D(Unknown Dose) 1 tab PO DAILY 03/26/25 [History] Fluocinonide 0.05% Solution 1 applic TOPICAL Q3D PRN 03/26/25 [History] Fluocinonide 0.05% [Lidex 0.05% cream] 1 applic TOPICAL Q3D PRN 03/26/25 [History] Levothyroxine Sodium [Synthroid] 75 mcg PO DAILY 03/26/25 [History] Multivit-Min/Iron/Folic/Lutein [Centrum Silver Women Tablet] 1 tab PO DAILY 03/26/25 [History] Topiramate [Topiramate (Sprinkle)] 30 mg PO HS 03/26/25 [History] HYDROcodone/APAP 5-325MG [[place] 5] 1 each PO Q8HR PRN #21 tab 03/29/25 [Rx] ALPRAZolam [Xanax] 0.25 mg PO DAILY PRN #3 tab 03/30/25 [Rx] Lidocaine 4% Patch 1 patch TOPICAL DAILY #3 patch 03/30/25 [Rx] Mirtazapine [Remeron] 15 mg PO HS #3 tab 03/30/25 [Rx] Psyllium Husk 100% [Metamucil Packet] 6 gm PO DAILY packet 03/30/25 [Rx] Sennosides-Docusate Sodium [Senokot-S] 1 each PO BID PRN tab 03/30/25 [Rx] Sennosides-Docusate Sodium [Senokot-S] 1 tab PO BID PRN #60 tablet 03/30/25 [Rx] diphenhydrAMINE [Benadryl] 25 mg PO TID PRN cap 03/30/25 [Rx] Follow up Appointment(s)/Referral(s): Asaf Trejo PAC [PHYSICIAN FOLLOW UP MANAGER] - 2 Weeks (Patient may follow-up with Asaf Trejo PA-C or Dr. Berny Schwartz at [facility] in 2-3 weeks following discharge with 2 view x-rays of the lumbar spine to be taken at that time. ) Ana Paula Pérez MD [Primary Care Provider] - 1-2 days Activity/Diet/Wound Care/Special Instructions: [facility] rehab 1. Patient may shower with Optifoam dressing intact. 2. Patient may remove Optifoam dressing in 3 days and shower without a dressing at that time. 3. Dressing changes may be performed as needed with nonstick Telfa and Tegaderm 4. Patient should refrain from driving until at least after their first follow-up appointment in the office. 5. Patient should avoid excessive bending, twisting, lifting; avoid overhead lifting; no lifting greater than 10 pounds 6. Take medications as prescribed 7. Patient should avoid anti-inflammatory medications over the next 6 weeks postoperatively 8. Do not soak in tub Discharge Disposition: TRANSFER TO SNF/ECF
== END 2025-03-30 14:47 | DRG 479 ==
LOC: EC 21:09 → 4SSUR 22:11
PROVIDERS: ADMIT Hospitalist; ATTEND Hospitalist
PROC: 0QS03ZZ Reposition Lumbar Vertebra, Percutaneous Approach (ICD-10-PCS; 2025-03-28)
PROC: 0QU03JZ Supplement Lumbar Vertebra with Synthetic Substitute, Percutaneous Approach (ICD-10-PCS; 2025-03-28)
PROC: 0QB00ZX Excision of Lumbar Vertebra, Open Approach, Diagnostic (ICD-10-PCS; principal; 2025-03-28 13:15)
DX: S32.019A Unspecified fracture of first lumbar vertebra, initial encounter for closed fracture (principal); M41.56 Other secondary scoliosis, lumbar region; S32.039A Unspecified fracture of third lumbar vertebra, initial encounter for closed fracture; S32.029A Unspecified fracture of second lumbar vertebra, initial encounter for closed fracture; J44.89 Other specified chronic obstructive pulmonary disease; F32.A Depression, unspecified; I10 Essential (primary) hypertension; F41.9 Anxiety disorder, unspecified; H91.90 Unspecified hearing loss, unspecified ear; K21.9 Gastro-esophageal reflux disease without esophagitis; W19.XXXA Unspecified fall, initial encounter; Z96.641 Presence of right artificial hip joint; M51.379 Other intervertebral disc degeneration, lumbosacral region without mention of lumbar back pain or lower extremity pain; M51.369 Other intervertebral disc degeneration, lumbar region without mention of lumbar back pain or lower extremity pain; K58.1 Irritable bowel syndrome with constipation; M43.12 Spondylolisthesis, cervical region; M50.321 Other cervical disc degeneration at C4-C5 level; L29.89 Other pruritus; K44.9 Diaphragmatic hernia without obstruction or gangrene; M19.90 Unspecified osteoarthritis, unspecified site; M81.0 Age-related osteoporosis without current pathological fracture; Z79.51 Long term (current) use of inhaled steroids; Z79.890 Hormone replacement therapy; Z79.899 Other long term (current) drug therapy; Z87.891 Personal history of nicotine dependence
CPT/HCPCS: 70450; 72100; 72125; 72148; 80048; 80053; 81001; 83735; 84100; 84443; 85025; 85610; 85730; 88307; 88311; 96374; 99285